=== PATIENT | male | born 1960 | race Hispanic/Latino ===

== ENCOUNTER 2018-07-10 11:36 | Inpatient (IN) | payer MEDICARE ==
[2018-07-10 11:56] VITALS: BMI 24.3
--- NOTE | 2018-07-10 11:59 | ED PDOC ---
Arrival/HPI - General Historian: Patient - History of Present Illness Narrative History of Present Illness (Text): 07/10/18 11:55 57yo male with pmhx of anemia, ITP, unknown psych history present to ED for a test. Per Dr. Dumont patient's H/H was 4.6 while he was at [facility] last week. Patient was supposed to follow up with Dr. Dumont's office earlier this week but never did. Patient did not get blood transfusion. Patient denies chest pain, SOB, weakness, dizziness, melena, hematocehzia, any other complaint Past Medical History - Provider Review Nursing Documentation Reviewed: Yes Family/Social History - Physician Review Nursing Documentation Reviewed: Yes Family/Social History: Unknown Family HX Allergies/Home Meds Allergies/Adverse Reactions: Allergies Penicillins Allergy (Mild, Verified 07/10/18 13:14) RASH Home Medications: Home Meds Medication Instructions Recorded Confirmed RX: Unobtainable 07/10/18 07/10/18 Review of Systems - Physician Review All systems were reviewed & negative as marked: Yes - Review of Systems Constitutional: Other (Anemic) Eyes: Normal ENT: Normal Respiratory: Normal Cardiovascular: Normal Gastrointestinal: Normal Genitourinary Male: Normal Musculoskeletal: Normal Skin: Normal Neurological: Normal Endocrine: Normal Hemo/Lymphatic: Normal Psychiatric: Normal Physical Exam Vital Signs Reviewed: Yes Temperature: Afebrile Blood Pressure: Normal Pulse: Regular Respiratory Rate: Normal Appearance: Positive for: Well-Appearing, Non-Toxic, Comfortable, Other (Pale appearing) Pain Distress: None Mental Status: Positive for: Alert and Oriented X 3 - Systems Exam Head: Present: Atraumatic, Normocephalic Pupils: Present: PERRL Extroacular Muscles: Present: EOMI Conjunctiva: Present: Icteric (B/L) Mouth: Present: Moist Mucous Membranes Neck: Present: Normal Range of Motion Respiratory/Chest: Present: Clear to Auscultation, Good Air Exchange. No: Respiratory Distress, Accessory Muscle Use Cardiovascular: Present: Regular Rate and Rhythm, Normal S1, S2. No: Murmurs Abdomen: No: Tenderness, Distention, Peritoneal Signs Back: Present: Normal Inspection Upper Extremity: Present: Normal Inspection. No: Cyanosis, Edema Lower Extremity: Present: Normal Inspection. No: Edema Neurological: Present: GCS=15, CN II-XII Intact, Speech Normal Skin: Present: Warm, Dry, Normal Color. No: Rashes Psychiatric: Present: Alert, Oriented x 3, Normal Insight, Normal Concentration Medical Decision Making ED Course and Treatment: 07/10/18 17:49 57yo male in ED for H/H of 4.5. Labs type and screen EKG Chest xray Labs was reviewed and H/H of 5.0 was noted. Pt's chart was reviewed and his last H/H was 5.0 on 07/06/18 Plan was to transfuse 3units, patient however declined transfusion. States he already told his PMD, Dr. Dumont that he won't take blood transfusion. He was educated on the importance of getting blood transfusion and the risk of dying from sudden cardiac arrest. He verbalized understanding of this risk and still declined blood transfusion. States he has been on iron regimen for 9months and will prefer iron infusion. Case was JUN Dumont and he recommended Venofer, Folic acid, Vit B12, Carafate, Protonix, chest/abd/Pelvic CT and admission. Patient requested to see Dr. Dumont in ED before he will agree to go upstairs and he was seen in ED by Dr. Dumont. Dr. Dumont states patient states he will think about getting blood transfusion while admitted. Patient was seen in ED by Dr. Camacho and consult was placed, per Dr. Dumont Patient was also seen in ED by the GI fellow. 07/10/18 19:05 Chest/Abd/Pelvic CT IMPRESSION: Large cecal mass. Hepatic and pulmonary metastatic disease. Result was JUN Spaulding who states he saw the CT result Disposition/Present on Arrival - Present on Arrival Any Indicators Present on Arrival: No History of DVT/PE: No History of Uncontrolled Diabetes: No Urinary Catheter: No History of Decub. Ulcer: No History Surgical Site Infection Following: None - Disposition Have Diagnosis and Disposition been Completed?: Yes Diagnosis: GI bleed, Anemia, Cecal cancer Disposition: HOSPITALIZED Disposition Time: 15:05 Patient Plan: Admission Patient Problems: Current Active Problems Problem Status Onset Anemia Acute GI bleed Acute Condition: FAIR
[2018-07-10 13:52] LABS: BASO # 0.02 K/mm3 (0.0-2.0); BASO % 0.3 % (0.0-3.0); EOS % 0.3 % (1.5-5.0); GRAN # 5.16 (1.4-6.5); GRAN % 75.6 % (50.0-68.0); LYMPH # 1.2 (1.2-3.4); LYMPH % 16.8 % (22.0-35.0); MEAN CELL VOLUME 65.2 fl (80.0-105.0); MEAN CORPUSCULAR HEMOGLOBIN 16.9 pg (25.0-35.0); MEAN CORPUSCULAR HGB CONC 25.9 g/dl (31.0-37.0); MONO # 0.5 (0.1-0.6); PLATELET COUNT 236 10^3/uL (120.0-450.0); RBC 2.96 10^6/uL (3.5-6.1); RED CELL DISTRIBUTION WIDTH 19.7 % (11.5-14.5); WHITE BLOOD COUNT 6.8 10^3/uL (4.5-11.0)
[2018-07-10 14:07] LABS: INR 1.36; PARTIAL THROMBOPLASTIN TIME 26.7 Seconds (25.1-36.5); PROTHROMBIN TIME 15.6 SECONDS (9.4-12.5)
[2018-07-10 14:25] LABS: ANISOCYTOSIS 1+; HYPOCHROMIA 2+; LYMPHOCYTE 18 % (22.0-35.0); MONOCYTE 3 % (1.0-6.0); NEUTROPHIL 79 % (50.0-70.0); PLATELET ESTIMATE NORMAL (NORMAL); POIKILOCYTOSIS 1+
[2018-07-10 14:26] LABS: MICROCYTOSIS 3+; OVALOCYTES 1+; TEAR DROP CELLS SLIGHT
[2018-07-10 14:32] LABS: ALB/GLOB RATIO 1.2 (1.1-1.8); ALBUMIN 3.3 g/dL (3.0-4.8); ALT/SGPT 32 U/L (7-56); AST/SGOT 19 U/L (17-59); BLOOD UREA NITROGEN 16 mg/dL (7-21); CALCIUM 8.8 mg/dL (8.4-10.5); GFR NON-AFRICAN AMERICAN > 60
[2018-07-10 15:34] LABS: IRON 14 ug/dL (45-180)
[2018-07-10 15:43] LABS: % IRON SATURATION 5 % (20-55); TOTAL IRON BINDING CAPACITY 295 ug/dL (261-462)
--- NOTE | 2018-07-10 16:43 | CP.PCM.CON ---
History of Present Illness - History of Present Illness History of Present Illness: Gastroenterology Fellow/PGY6 Consult Note 57 year old male with PMH of ITP and iron deficiency anemia on oral iron supplementation presenting with low hemoglobin. He was contacted by Dr. Spaulding for ER presentation earlier this week due to Hemoglobin level of 4.6g/dL. Patient states he has been on oral iron supplementation for the last eight months with worsening hemoglobin. He refuses blood product transfusion due to his morals and principles. He notes over the last one year progressive weakness, dyspnea on exertion, loss of appetite, irregular bowel habits of hard stools with straining every three days, and 40-50 pound unintentional weight loss. He admits to dark brown to black stools "for months". He notes onset of right upper abdomen/flank pain worsened with deep inspiration leading to evaluation at [facility] satellite ER in [place] where he states he was told he had liver "lesions" on ultrasound. Denies chest pain, nausea, vomiting, hematemesis, diarrhea, hematochezia, leg swelling, or confusion. No prior EGD or colonoscopy. Family History- Father- bladder cancer, Brother-Liver cancer Social History- quit tobacco as a teenager, denies alcohol or illicit drug use Surgical History- multiple scalp cyst removal Review of Systems - Review of Systems Review of Systems: 12-point review of systems negative except for as above Past Patient History - Infectious Disease Hx of Infectious Diseases: None - Past Social History Smoking Status: Never Smoked - CARDIAC Hx Cardiac Disorders: No - PULMONARY Hx Respiratory Disorders: No - NEUROLOGICAL Hx Neurological Disorder: No - HEENT Hx HEENT Problems: No - RENAL Hx Chronic Kidney Disease: No - ENDOCRINE/METABOLIC Hx Endocrine Disorders: No - HEMATOLOGICAL/ONCOLOGICAL Hx Blood Disorders: Yes Hx Anemia: Yes Other/Comment: ITP - INTEGUMENTARY Hx Dermatological Problems: No - MUSCULOSKELETAL/RHEUMATOLOGICAL Hx Musculoskeletal Disorders: No - GASTROINTESTINAL Hx Gastrointestinal Disorders: Yes Other/Comment: LIVER PROBLEM - GENITOURINARY/GYNECOLOGICAL Hx Genitourinary Disorders: No - PSYCHIATRIC Hx Psychophysiologic Disorder: Yes Hx Substance Use: No Meds Allergies/Adverse Reactions: Allergies Allergy/AdvReac Type Severity Reaction Status Date / Time Penicillins Allergy Mild RASH Verified 07/10/18 13:14 - Medications Medications: Current Medications Folic Acid (Folic Acid) 1 mg IVP DAILY JOE Physical Exam - Constitutional Appears: Non-toxic, No Acute Distress, Chronically Ill - Head Exam Head Exam: ATRAUMATIC, NORMOCEPHALIC - Eye Exam Eye Exam: EOMI, PERRL. absent: Scleral icterus Pupil Exam: PERRL. absent: Miosis, Mydriatic - ENT Exam ENT Exam: Mucous Membranes Moist, Normal Oropharynx - Neck Exam Neck exam: Positive for: Full Rom, Normal Inspection - Respiratory Exam Respiratory Exam: Clear to Auscultation Bilateral. absent: Rales, Rhonchi, Wheezes - Cardiovascular Exam Cardiovascular Exam: RRR, +S1, +S2. absent: Gallop, Rubs - GI/Abdominal Exam GI & Abdominal Exam: Normal Bowel Sounds, Soft. absent: Distended, Firm, Guarding, Organomegaly, Rebound, Rigid, Tenderness - Rectal Exam Additional comments: refused - Extremities Exam Extremities exam: Positive for: normal inspection. Negative for: pedal edema - Neurological Exam Neurological exam: Alert - Psychiatric Exam Psychiatric exam: Normal Affect, Normal Mood - Skin Skin Exam: Dry, Intact, Pallor, Warm Results - Vital Signs Recent Vital Signs: Last Vital Signs Temp 98.7 F 07/10/18 11:56 Pulse 109 H 07/10/18 11:56 Resp 20 07/10/18 11:56 BP 125/75 07/10/18 11:56 Pulse Ox 99 07/10/18 11:56 - Labs Result Diagrams: 07/10/18 13:30 07/10/18 13:30 Labs: Laboratory Results - last 24 hr 07/10/18 07/10/18 07/10/18 13:30 13:30 13:30 WBC 6.8 RBC 2.96 L Hgb 5.0 L* Hct 19.3 L* MCV 65.2 L MCH 16.9 L MCHC 25.9 L RDW 19.7 H Plt Count 236 Gran % 75.6 H Lymph % (Auto) 16.8 L Harrison % (Auto) 7.0 H Eos % (Auto) 0.3 L Baso % (Auto) 0.3 Gran # 5.16 Lymph # (Auto) 1.2 Harrison # (Auto) 0.5 Eos # (Auto) 0.0 Baso # (Auto) 0.02 Neutrophils % (Manual) 79 H Lymphocytes % (Manual) 18 L Monocytes % (Manual) 3 Platelet Evaluation Normal Hypochromasia 2+ Poikilocytosis (manual 1+ Anisocytosis (manual) 1+ Microcytosis (manual) 3+ Tear Drop Cells Slight Ovalocytes 1+ PT 15.6 H INR 1.36 APTT 26.7 Sodium 138 Potassium 4.0 Chloride 106 Carbon Dioxide 23 Anion Gap 14 BUN 16 Creatinine 0.8 Est GFR ( Amer) > 60 Est GFR (Non-Af Amer) > 60 Random Glucose 102 Calcium 8.8 Iron TIBC % Saturation Total Bilirubin 0.3 AST 19 ALT 32 Alkaline Phosphatase 154 H Total Protein 6.0 Albumin 3.3 Globulin 2.7 Albumin/Globulin Ratio 1.2 Blood Type Blood Type Confirm Antibody Screen BBK History Checked 07/10/18 07/10/18 07/10/18 13:30 13:30 14:15 WBC RBC Hgb Hct MCV MCH MCHC RDW Plt Count Gran % Lymph % (Auto) Harrison % (Auto) Eos % (Auto) Baso % (Auto) Gran # Lymph # (Auto) Harrison # (Auto) Eos # (Auto) Baso # (Auto) Neutrophils % (Manual) Lymphocytes % (Manual) Monocytes % (Manual) Platelet Evaluation Hypochromasia Poikilocytosis (manual Anisocytosis (manual) Microcytosis (manual) Tear Drop Cells Ovalocytes PT INR APTT Sodium Potassium Chloride Carbon Dioxide Anion Gap BUN Creatinine Est GFR ( Amer) Est GFR (Non-Af Amer) Random Glucose Calcium Iron 14 L TIBC 295 % Saturation 5 L Total Bilirubin AST ALT Alkaline Phosphatase Total Protein Albumin Globulin Albumin/Globulin Ratio Blood Type O POSITIVE Blood Type Confirm O POSITIVE Antibody Screen Negative BBK History Checked No verified bt Assessment & Plan - Assessment and Plan (Free Text) Assessment: 57 year old male with PMH of ITP and iron deficiency anemia on oral iron supplementation presenting with low hemoglobin. Active treatment of progressive iron deficiency anemia and unintentional weight loss. No prior EGD or colonoscopy. Plan: -concern for GI blood loss- endorses dark black stools in setting of oral iron supplementation -refuses rectal exam -patient refuses blood product transfusions due to his choice and morals (states "it is not due to lutheran belief") -will benefit from transfusion, counselling provided on benefit versus risks of blood transfusion -patient expresses understanding and confirms respect of his wishes to not have blood transfusion -IV iron sucrose, PPI, B12, sucralfate administration ordered and refused by patient -patient would benefit from acid suppression and IV iron supplementation for concern of GI blood loss -concern for underlying neoplasm in setting of weight loss and iron deficiency anemia -recommend CT C/A/P PO and IV contrast to evaluate for underlying pathology -patient counselled on benefit of endoscopic evaluation with EGD and colonoscopy once clearance is documented to undergo procedures by cardiology and anesthesia given severe iron deficiency anemia with refusal of blood product administration -Hematology consulted (blood smear 06/2018 microcytic hypochromic RBC, no atypical cells) -trend H/H -continue counselling on medications administration -will follow clinical course
--- NOTE | 2018-07-10 17:40 | CP.PCM.PCO ---
Addendum Addendum: 07/10/18 17:38 pt was seen in ED as per 's request meds confirmed by [facility] [place] [phone] pt filled meds on 06/17/18 citalopram 10mg po daily, recommended to continue klonopin 0.5 tid for anxiety, recommended to continue please see dictated note for more detailed information
--- NOTE | 2018-07-10 18:40 | CT ---
Date of service: 07/10/2018 PROCEDURE: CT Chest, Abdomen and Pelvis without intravenous contrast HISTORY: anemia COMPARISON: 05/26/2013 CT abdomen and pelvis TECHNIQUE: Radiation dose: Total exam DLP = 489.66 mGy-cm. This CT exam was performed using one or more of the following dose reduction techniques: Automated exposure control, adjustment of the mA and/or kV according to patient size, and/or use of iterative reconstruction technique. FINDINGS: CT CHEST WITHOUT CONTRAST: LUNGS: Innumerable pulmonary nodules the preponderance of which are 1 cm or less. Metastatic disease by far the most likely etiology. MEDIASTINUM: Unremarkable. Normal caliber aorta and pulmonary arterial trunk. Normal size heart. LYMPH NODES: Unremarkable. PLEURA: Unremarkable. No pneumothorax. No pleural fluid. BONES: Unremarkable. OTHER FINDINGS: None. CT ABDOMEN AND PELVIS: LIVER: Hepatomegaly, hepatic metastatic disease. Several of the masses display increased attenuation consistent with metastatic disease from a gastrointestinal origin. GALLBLADDER AND BILE DUCTS: Unremarkable. PANCREAS: The pancreas is inseparable from adjacent bowel, duodenum. SPLEEN: Stable splenomegaly. She ADRENALS: Unremarkable. No mass. KIDNEYS AND URETERS: Unremarkable. No hydronephrosis. No solid mass. VASCULATURE: No aortic atherosclerotic calcification or mural plaque present. Unremarkable. No aortic aneurysm. BOWEL: Cecal mass identified measuring 4.9 x 6.5 cm. APPENDIX: Normal appendix. PERITONEUM: Free fluid limited to the pelvis.. No free air. LYMPH NODES: Unremarkable. No enlarged lymph nodes. BLADDER: Unremarkable. REPRODUCTIVE: Unremarkable. BONES: No acute fracture. OTHER FINDINGS: None. IMPRESSION: Large cecal mass. Hepatic and pulmonary metastatic disease. Limitations of the current study: The absence of oral and intravenous contrast. Communication of results: I discussed findings directly with the physician cook's assistant involved in the care and management of the patient at 18:31.
[2018-07-10] MEDS: Dextrose 5%/0.45% NS 1,000 ML IV SCH (19:30)
[2018-07-10] MEDS ORDERED: Influenza Vaccine 60 mcg/0.5 mL SYR (4YR UP) IM ONE (23:03)
[2018-07-10] MEDS ORDERED: Pneumococcal 23-Valent Vaccine IM ONE (23:03)
--- NOTE | 2018-07-11 00:58 | HP ---
DATE OF EXAM: 07/10/2018 HISTORY OF PRESENT ILLNESS: This is a 57-year-old white male with significant past medical history of ITP, iron-deficiency anemia, and on oral iron supplementation recently, with progressive weight loss, unintentional and had change in his bowel habits. He was encouraged to go for a GI evaluation, but refused to do so. He was coughing as well, had a chest x-ray done as an outpatient recently, which was negative. He was noted to have progressively worsening anemia over the past month, and hemoglobin that was around 9 and 10, dropped down to 6.4. Usually, his hemoglobin used to be around 11 to 14. Concern was whether this anemia was related to prednisone therapy that he was taking for his ITP versus some other pathology, but the patient because of his issues from a psychiatric point of view, was very angry and did not want to have any investigation done as an outpatient. He is becoming progressively weak. About a week ago, the patient was taken to the local emergency room of [facility] on [address] in [place], where he had a blood count done. He was told he had a hemoglobin of 4.6. Apparently, they have done an ultrasound of his abdomen and showed that there were some lesions in his liver and that he needs to be admitted to the hospital, not only for blood transfusion, but he may need further workup. The patient refused blood transfusion at that time and signed-out against medical advice. The patient called our office over the weekend and then was told to come to the emergency room at [facility]. Because of personal issues, he could not make it. He came to our office on 07/06/2018. Again, the blood count was around 5 at this time and the patient was complaining of progressive tiredness and shortness of breath on exertion. He was advised to come into the hospital. He was advised that he may need an endoscopy, colonoscopy, and further workup including CAT scan of the chest, abdomen and pelvis to investigate why the counts have been dropping steadily over the last [id number]. The patient refused to do so. Recently, he has been noting some right upper quadrant flank pain which worsened with deep inspiration leading to evaluation in the emergency room at [facility] ER in [place], where, as I mentioned, he was told he has lesions in the liver on the ultrasound and the patient because of these findings, was quite concerned. He was supposed to have come to our office on Friday. Again, because of personal reasons, could not make it and he walked into the emergency room today. In the emergency room, the patient's hemoglobin was 4.6 g% and the patient was advised to get admitted for further workup, but the patient refused to do so until he spoke to me. The patient is currently in the ER and awaiting admission. The patient is refusing blood transfusion as well. We will try and discuss with him as to the need for the transfusion before anybody can do an endoscopy or colonoscopy. FAMILY HISTORY: Significant for the fact that his father had bladder cancer and brother had liver cancer. SOCIAL HISTORY: The patient used to be a smoker many years ago, but quit tobacco as a teenager. He denies any alcohol or illicit drug abuse. PAST SURGICAL HISTORY: Scalp cyst removal in the past. There is no other surgical history. PAST MEDICAL HISTORY: Significant for the fact that he was diagnosed with ITP in 2012. Baseline CAT scans and ultrasound of the abdomen from that time which are in the hospital records were negative in the workup for the ITP. Marrow showed adequate megakaryocytes consistent with peripheral destruction. He was started on low-dose prednisone and his platelet count which was in the low 30s, dramatically went up into the 50s and 80,000. The patient has been on intermittent prednisone therapy. It has been tapered off and more recently has been increased and then recently, they cut down the dose of prednisone to the most minimal amount required as the patient now has been having complaints of what appears to be epigastric discomfort and a clinical working diagnosis was anemia related to probably iron loss, rule out GI pathology including ulcers versus malignancy. REVIEW OF SYSTEMS: In the 12-point review of systems, the patient has been complaining of progressive tiredness, shortness of breath on exertion, nonproductive cough. Denies any fevers. Denies any chills. Has been having dark brown to dark stools recently for a few months. Denies any hemoptysis. Denies any elliot bleeding per se. ALLERGIES: THE PATIENT IS ALLERGIC TO PENICILLIN. MEDICATIONS: The patient's medications that he was taking as an outpatient are the following; he is on folic acid 1 mg daily, vitamin D 50,000 units once a week, prednisone 5 mg daily, omeprazole 20 mg daily, ferrous sulfate 1 mg daily, Carafate 1 g by mouth two times a day. The patient is also on citalopram 5 mg one daily and clonazepam 0.5 mg two times a day given by Dr. Aguilar. The patient has been taking these medicines for many years for "bipolar disorder" versus schizophrenia under the care of Dr. Aguilar, a local psychiatrist, since 2008. PHYSICAL EXAMINATION GENERAL: The patient is awake, alert, oriented, in no acute distress. VITAL SIGNS: T-max is 98.4, pulse is 109, respirations 20, blood pressure 125/75, pulse ox is 99% on room air. HEENT: Head is normocephalic, atraumatic. Conjunctivae pale. Temporal muscle wasting is noted. Examination of the oropharynx, there is no oropharyngeal lesion. NECK: Supple. There is no adenopathy. No jugular venous distention noted. LUNGS: Clear to percussion and auscultation without any adventitious sounds. CARDIOVASCULAR: Reveals PMI to be in the fifth intercostal space inside the midclavicular line. S1, S2 are normal. No gallop or murmur is heard. ABDOMEN: Soft, nontender. No rebound, rigidity, or guarding is noted. GENITOURINARY/RECTAL: Deferred as the patient refused. EXTREMITIES: Reveals no cyanosis, clubbing or edema of the upper or lower extremities. NEUROLOGIC: The patient's higher functions are normal. He is angry. No focal deficits are noted. PSYCHIATRIC: The patient has a normal affect, but he carries the diagnosis of bipolar versus schizophrenia, under the care of Dr. Aguilar and he is on two medications for the same for a long time, I believe, since 2008. The patient's medications include citalopram 10 mg daily and clonazepam 0.5 mg two times a day in addition to the aforementioned medicines. LABORATORY DATA: From today reveals a white count of 6.8, hemoglobin of 5, hematocrit 19.3, platelet count 236,000. Sodium is 135, K is 4, chloride is 106, CO2 is 23, BUN is 16, creatinine 0.8, blood sugar is 102. ASSESSMENT NOTES AND PLAN: This is a 57-year-old male with a past medical history of idiopathic thrombocytopenic purpura, iron-deficiency anemia, presenting now with a very low hemoglobin in the emergency room and a background history of having progressive weight loss and progressive drop in the hemoglobin and hematocrit over the last few months, refusing test as an outpatient and the background history of having psychiatric issues including post-traumatic stress disorder, bipolar, depression versus schizophrenia, under the care of Dr. Aguilar and is on citalopram and clonazepam. The patient also has some visual issues for which he has been told he cannot be helped because it appears to be congenital. Plan is to start the patient on IV iron. We tried to convince him that he would benefit from blood transfusion to jumpstart him. The patient would need blood transfusion due to his choice and morals and not because of sabianism belief. He wants to try the IV iron now and see how he does. The patient refuses a rectal exam and we discussed again about the benefits of transfusion. He is going to think about it. Counseling provided to the patient. I spoke to the patient at length. I had the Gastroenterology resident and Gastroenterology fellow talk to the patient as well as the emergency room physician and the emergency room physician culture media laboratory assistant talk to him. Currently, the patient is angry, but he would like to wait and see how things go with the IV iron. I told him we would give him IV iron over the next several days. Along with that, we could give him growth factors. Hopefully, that will raise the count. We are ordering a stat CAT scan of the chest, abdomen, and pelvis to look for internal pathology, especially given the fact that he was told he had some spots in the liver that need to be investigated. We will discuss with the patient in detail once I review the CAT scan as well. Gastroenterology consultation with Dr. Galvez has also been obtained for esophagogastroduodenoscopy and colonoscopy when feasible and when the patient is medically stable. We will request for an EKG in the meantime to check cardiac function as well. Please make a note, this is a complex patient with multiple comorbid medical issues along with psychiatric issues as well. I have requested Dr. Camacho to see the patient as well, who was kind enough to see the patient and make appropriate recommendations. She will continue to monitor while the patient is in the hospital. I tried to reassure the patient that we are not breaching any confidentiality and that Dr. Aguilar would continue to monitor him once he gets discharged from the hospital. I told him I would let Dr. Aguilar know also of his admission once we have everything squared away as far as his hematologic status is concerned. The biggest concern at this point would be underlying malignancy. Mk Spaulding MD MIKAYLA
--- NOTE | 2018-07-11 05:41 | CON ---
DATE: 07/10/2018 HISTORY OF PRESENT ILLNESS: In short, the patient is 57-year-old male with no known psychiatric history. The patient is seeing Dr. Fidencio Aguilar in the community. The patient was sent to the emergency room by Dr. Spaulding for hemoglobin of 4.6. Psych consult was called for evaluation of mood as well as possible depression and medication management. This newspaper writer had prolonged conversation with Dr. Spaulding today, who expressed his highest concerns about the patient's presentation. The patient appears to be angry all the time. Patient has mood swings. Also, the patient does not have cell phone and not responding for any calls, but, at the same time, the patient is compliant with followup appointments with Dr. Spaulding. This newspaper writer attempted to speak to the patient in the emergency room. The patient presented to be very irritable, angry, at times cursing at this newspaper writer. Constant redirections need to be take place while talking to him. The patient reported that he was born angry. This newspaper writer does not know anything about him. The patient was on defensive stage at the beginning of the interview, said "why here. I already have psychiatrist in the community. My psychiatrist is Dr. Fidencio Aguilar." The patient reported that he fills medication at [facility]. Medications confirmed from the psychiatric standpoint. The patient was on citalopram 10 mg daily prescribed by Dr. Fidencio Aguilar. The patient filled that medication on 05/14 and on 06/17, most likely the patient was compliant with the medication. The patient also is on 0.5 mg of clonazepam three times a day as needed, same prescriber, same date of fill of that medication. The patient reported that he is not hearing voices, not seeing things, but obviously was irritable, grandiose. 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 The patient also presented with pressured speech, constantly interrupting this newspaper writer with his statement. The patient said that he has underlying anger, but denied any history of aggression or agitation. The patient denied history of suicidal attempts and denied history of being admitted to the psychiatric inpatient unit. Vital signs reviewed. Labs reviewed. Medications reviewed. MENTAL STATUS EXAMINATION: The patient presented to be irritable, angry, laying with the door closed in darkness. Mood described as, "I was born angry." Affect was flat and irritable. Mood congruent. Thought process at times circumstantial. Thought content, the patient denied visual, auditory, tactile hallucinations, but the patient appears to be guarded at the same time. The patient denied any thoughts of harming himself or others, but was making hopeless statement such as, "my life is over. I have no hopes." Insight and judgment seems to be limited. Impulses are so far well controlled. IMPRESSION: Rule out bipolar disorder, rule out mood disorder due to general medical condition. PLAN: This newspaper writer confirmed medication of clonazepam and citalopram will be confirmed, but will continue with the same doses what the patient was taking. This newspaper writer will ask Dr. Good to follow up on this patient over the weekend. Supportive therapy and empathic listening was provided, but the patient was not receptive. Most likely, the patient requires to be on mood stabilizer, but this newspaper writer doubt that he will be willing to change his medications. Moreover, his newspaper writer cannot exclude, after medical stabilization, pt might be feeling better and the patient's mood will be improving. Meanwhile, the patient will be admitted on the medical site as per medical team. Should you have any questions, give me a call back. Thank you very much for letting me participate in the care of your patient. Janice Guzman MD MTDWai
[2018-07-11 06:24] LABS: ALB/GLOB RATIO 1.2 (1.1-1.8); ALBUMIN 3.2 g/dL (3.0-4.8); ALT/SGPT 25 U/L (7-56); AST/SGOT 28 U/L (17-59); BLOOD UREA NITROGEN 12 mg/dL (7-21); CALCIUM 8.6 mg/dL (8.4-10.5); GFR NON-AFRICAN AMERICAN > 60
[2018-07-11 09:29] LABS: RBC 3.06 10^6/uL (3.5-6.1); WHITE BLOOD COUNT 9.3 10^3/uL (4.5-11.0)
[2018-07-11 09:30] LABS: BASO # 0.01 K/mm3 (0.0-2.0); BASO % 0.1 % (0.0-3.0); EOS # 0.1 (0.0-0.7); EOS % 1.5 % (1.5-5.0); GRAN # 5.73 (1.4-6.5); GRAN % 61.8 % (50.0-68.0); LYMPH # 2.6 (1.2-3.4); LYMPH % 27.7 % (22.0-35.0); MEAN CELL VOLUME 64.4 fl (80.0-105.0); MEAN CORPUSCULAR HGB CONC 26.4 g/dl (31.0-37.0); MONO # 0.8 (0.1-0.6); MONO % 8.9 % (1.0-6.0); PLATELET COUNT 310 10^3/uL (120.0-450.0)
[2018-07-11 09:31] LABS: HEMOGLOBIN 5.2 g/dL (14.0-18.0)
[2018-07-11] MEDS: Dextrose 5%/0.45% NS 1,000 ML IV SCH (11:20)
--- NOTE | 2018-07-11 16:11 | CP.PCM.PN ---
<Olegario Guerrero - Last Filed: 07/11/18 16:08> Subjective - Date & Time of Evaluation Date of Evaluation: 07/11/18 Time of Evaluation: 12:20 - Subjective Subjective: PGY-4 GI Fellow Consult Note Pt lying in bed getting iron infusion when seen this AM. Agitated that blood count has not improved. Anxious about possible cancer diagnosis often cursing aloud. Denied any other complaints. 5 point ROS negative other than stated above Objective - Vital Signs/Intake and Output Vital Signs (last 24 hours): Temp Pulse Resp BP Pulse Ox 98.4 F 64 18 103/54 L 95 07/11/18 08:35 07/11/18 08:35 07/11/18 08:35 07/11/18 08:35 07/11/18 08:35 Intake and Output: 07/11/18 07/11/18 06:59 18:59 Intake Total 120 Balance 120 - Medications Medications: Current Medications Bisacodyl (Dulcolax) 10 mg PO ONCE ONE Stop: 07/12/18 18:01 Citalopram Hydrobromide (Celexa) 10 mg PO DAILY [facility] Last Admin: 07/11/18 10:08 Dose: 10 mg Clonazepam (Klonopin) 0.5 mg PO TID [facility]; Protocol Last Admin: 07/11/18 15:08 Dose: 0.5 mg Folic Acid (Folic Acid) 1 mg IVP DAILY [facility] Last Admin: 07/11/18 13:59 Dose: 1 mg Iron Sucrose 200 mg/ Sodium (Chloride) 110 mls @ 110 mls/hr IVPB DAILY [facility] Stop: 07/15/18 11:00 Last Admin: 07/11/18 10:10 Dose: 110 mls/hr Dextrose/Sodium Chloride (Dextrose 5%/0.45% Ns 1000 Ml) 1,000 mls @ 60 mls/hr IV .[id number] [facility] Last Admin: 07/11/18 11:20 Dose: Not Given Pantoprazole Sodium (Protonix Inj) 40 mg IVP DAILY [facility] Last Admin: 07/11/18 10:08 Dose: 40 mg Polyethylene Glycol/Electrolytes (Golytely) 4,000 ml PO ONCE ONE Stop: 07/12/18 16:01 Sucralfate (Carafate Tab) 1 gm PO 0600,1600 [facility] Last Admin: 07/11/18 15:11 Dose: Not Given - Labs Labs: 07/11/18 05:15 07/11/18 05:15 PT 15.6 SECONDS (9.4-12.5) H 07/10/18 13:30 INR 1.36 07/10/18 13:30 APTT 26.7 Seconds (25.1-36.5) 07/10/18 13:30 - Constitutional Appears: No Acute Distress, Agitated - Head Exam Head Exam: ATRAUMATIC, NORMAL INSPECTION - Eye Exam Eye Exam: EOMI. absent: Scleral icterus - ENT Exam ENT Exam: Mucous Membranes Moist. absent: Mucous Membranes Dry - Respiratory Exam Respiratory Exam: NORMAL BREATHING PATTERN. absent: Accessory Muscle Use, Respiratory Distress - GI/Abdominal Exam GI & Abdominal Exam: Soft, Normal Bowel Sounds, Organomegaly (firm hepatomegaly). absent: Bruit, Distended, Firm, Guarding, Rigid, Tenderness, Pulsatile Mass, Rebound Assessment and Plan - Assessment and Plan (Free Text) Assessment: 57 year old male with PMH of ITP and iron deficiency anemia on oral iron supplementation presenting with low hemoglobin. Active treatment of progressive iron deficiency anemia and unintentional weight loss. No prior EGD or colonoscopy. # Cecal Mass, Worsening Anemia, Liver+Pulmonary lesion: Constellation of signs/symptoms all point to Stage IV Colon Cancer. Needs further endoscopic ev aluation to assess for any other sources of bleeding, potential bleeding malignancy and tissue sample of cecal mass. Plan: - At this time, patient refuses blood product transfusions due to his choice and morals (states "it is not due to christian belief"); however, he is agreeable to transfuse with PRBCs to goal of 8 if not met in AM of 07/12 - IV Iron, PRBCs per Hematology - Plan for EGD+CSPY on 07/13 - CLD tomorrow - Prep for CSPY on 07/12 - NPO at [place] on 07/12 - Trend H/H Pt seen and examined with Dr. Galvez; see attestation for further recs/changes Olegario Guerrero; PGY-4 <Delonte Galvez V - Last Filed: 07/11/18 17:06> Objective - Vital Signs/Intake and Output Vital Signs (last 24 hours): Temp Pulse Resp BP Pulse Ox 99.9 F H 77 18 110/72 98 12/01/18 16:55 07/11/18 16:55 07/11/18 16:55 07/11/18 16:55 07/11/18 16:55 Intake and Output: 07/11/18 07/11/18 06:59 18:59 Intake Total 120 Balance 120 - Medications Medications: Current Medications Bisacodyl (Dulcolax) 10 mg PO ONCE ONE Stop: 07/12/18 18:01 Citalopram Hydrobromide (Celexa) 10 mg PO DAILY [facility] Last Admin: 07/11/18 10:08 Dose: 10 mg Clonazepam (Klonopin) 0.5 mg PO TID [facility]; Protocol Last Admin: 07/11/18 15:08 Dose: 0.5 mg Folic Acid (Folic Acid) 1 mg IVP DAILY [facility] Last Admin: 07/11/18 13:59 Dose: 1 mg Iron Sucrose 200 mg/ Sodium (Chloride) 110 mls @ 110 mls/hr IVPB DAILY [facility] Stop: 07/15/18 11:00 Last Admin: 07/11/18 10:10 Dose: 110 mls/hr Dextrose/Sodium Chloride (Dextrose 5%/0.45% Ns 1000 Ml) 1,000 mls @ 60 mls/hr IV .[id number] [facility] [place] Last Admin: 07/11/18 11:20 Dose: Not Given Pantoprazole Sodium (Protonix Inj) 40 mg IVP DAILY [facility] Last Admin: 07/11/18 10:08 Dose: 40 mg Polyethylene Glycol/Electrolytes (Golytely) 4,000 ml PO ONCE ONE Stop: 07/12/18 16:01 Sucralfate (Carafate Tab) 1 gm PO 0600,1600 [facility] Last Admin: 07/11/18 15:11 Dose: Not Given - Labs Labs: 07/11/18 05:15 07/11/18 05:15 PT 15.6 SECONDS (9.4-12.5) H 07/10/18 13:30 INR 1.36 07/10/18 13:30 APTT 26.7 Seconds (25.1-36.5) 07/10/18 13:30 Attending/Attestation - Attestation I have personally seen and examined this patient.: Yes I have fully participated in the care of the patient.: Yes I have reviewed all pertinent clinical information, including history, physical exam and plan: Yes Notes (Text): This is an addendum to GI progress report dictated by the GI Fellow. The patient was seen and examined earlier. Medical records, lab studies, imagings were reviewed. Last 24 hours events reviewed. Agreed with the above treatment plan as outlined in GI Fellow 's notes with the addition of the following This 57 year old patient has a large cecal mass with lung and liver lesions. Admitted with severe anemia. Patient is on iron infusion. Agreeable for blood transfusion tomorrow if hemoglobin is low. Explained to the patient that EGD and colonoscopy can not be done unless his hemoglobin improves to at least 8. Will start bowel preparation tomorrow after reviewing his blood work. Clear liquid diet in the AM. Discussed with Dr.Arjun Spaulding. 07/11/18 17:03
--- NOTE | 2018-07-11 20:40 | CON ---
DATE OF CONSULTATION: 07/11/2018 HISTORY OF PRESENT ILLNESS: The patient is a 57-year-old male, who was in psychiatric treatment with Dr. Aguilar, who was seen by Dr. Guzman in the ER for evaluation of depression and possible further medication management. Dr. Guzman met with the patient in the ER and noted the patient to be irritable, angry, and and unwilling to engage. He eventually, reluctantly did have an interview with her. The patient at that time denied having any hallucinations. Irritability and pressured speech were noted as well as underlying anger. He denied having any suicidal thoughts or thoughts to harm others. Dr. Guzman did not feel that he would engage with any psychiatric treatment on the psychiatric inpatient unit, I agree with Dr. Guzman's assessment. When I met the patient at bedside today, he is alert and oriented to current circumstances, however, appears to be irritable and very unhappy with the continued psychiatric consultation attempts by this provider and Dr. Guzman. He was verbally abusive towards this provider as he was with Dr. Guzman, and he is quite annoyed that psychiatric consultations were called on him. The patient again denies having any thoughts to harm himself. He states that he is not a danger to anybody, those were his words, specifically "I'm not a danger to myself, I'm not a danger to any body else." The patient expresses his sincere wish to be left alone and indicates that he plans to keep a followup with his psychiatrist and does not have any wish to have any further discussions about his mental health treatment on the medical floor. The patient is irritable. However, I did not elicit any grandiose or overtly delusional statements during the course of our conversation, and the patient was able to be calmed down, though is still very resistant to actually interact in a productive manner to discuss his mental health and well-being. He does not want any changes to his medications and refused a psychiatric inpatient hospitalization when this disposition was brought up. Vital signs and labs reviewed. MEDICATIONS: Relevant psychiatric medications include Celexa 10 mg daily, Klonopin 0.5 t.i.d. IMPRESSION: Mood disorder, not otherwise specified, rule out bipolar spectrum disorder, rule out personality disorder, likely borderline personality trait, though I cannot determine whether there was hypomania RECOMMENDATIONS: I will continue Celexa and Klonopin as prescribed. The patient defers from any further psychiatric interventions in regard to therapy or medication management The patient continues to be verbally abusive to the psychiatric staff in the hospital and further attempts to engage him will escalate his agitation. Please reconsult if there are any new changes to the patient's symptomatology, but he does not appear to have any acute indications for being a danger to himself according to reports. Sailaja Good MD MTDD
[2018-07-12 05:48] LABS: BASO # 0.01 K/mm3 (0.0-2.0); BASO % 0.1 % (0.0-3.0); EOS # 0.1 (0.0-0.7); EOS % 1.3 % (1.5-5.0); GRAN # 4.74 (1.4-6.5); GRAN % 66.7 % (50.0-68.0); LYMPH # 1.8 (1.2-3.4); LYMPH % 25.1 % (22.0-35.0); MEAN CELL VOLUME 64.3 fl (80.0-105.0); MEAN CORPUSCULAR HEMOGLOBIN 16.9 pg (25.0-35.0); MEAN CORPUSCULAR HGB CONC 26.3 g/dl (31.0-37.0); MONO # 0.5 (0.1-0.6); MONO % 6.8 % (1.0-6.0); PLATELET COUNT 242 10^3/uL (120.0-450.0); RBC 2.72 10^6/uL (3.5-6.1); RED CELL DISTRIBUTION WIDTH 19.4 % (11.5-14.5); WHITE BLOOD COUNT 7.1 10^3/uL (4.5-11.0)
[2018-07-12 06:04] LABS: BLOOD UREA NITROGEN 8 mg/dL (7-21); GFR NON-AFRICAN AMERICAN > 60
[2018-07-12 06:05] LABS: ALB/GLOB RATIO 1.1 (1.1-1.8); ALBUMIN 2.6 g/dL (3.0-4.8); ALT/SGPT 33 U/L (7-56); AST/SGOT 26 U/L (17-59); CALCIUM 8.2 mg/dL (8.4-10.5)
[2018-07-12 06:08] LABS: HEMOGLOBIN 4.6 g/dL (14.0-18.0)
[2018-07-12] MEDS ORDERED: DiphenhydrAMINE 50 mg/ml Inj IVP ONE (08:17)
--- NOTE | 2018-07-12 12:18 | CP.PCM.PN ---
<Olegario Guerrero - Last Filed: 07/12/18 12:15> Subjective - Date & Time of Evaluation Date of Evaluation: 07/12/18 Time of Evaluation: 09:10 - Subjective Subjective: PGY-4 GI Fellow Prog Note Pt sitting up in bed when seen this AM. Hgb did not improve post Fe infusions, though hesitant and agitated, he agrees to blood transfusions with goal Hgb of 8 in anticipation of plan procedure tomorrow. Otherwise, denies complaints and "wants to get this shit over with." 5 point ROS negative other than stated above Objective - Vital Signs/Intake and Output Vital Signs (last 24 hours): Temp Pulse Resp BP Pulse Ox 98.2 F 71 18 103/63 95 07/12/18 10:28 07/12/18 10:28 07/12/18 10:28 07/12/18 10:28 07/12/18 08:02 Intake and Output: 07/12/18 07/12/18 06:59 18:59 Intake Total 240 0 Balance 240 0 - Medications Medications: Current Medications Acetaminophen (Tylenol 325mg Tab) 650 mg PO Q6H PRN PRN Reason: Fever >100.4 F Last Admin: 07/12/18 09:27 Dose: 650 mg Bisacodyl (Dulcolax) 10 mg PO ONCE ONE Stop: 07/12/18 18:01 Citalopram Hydrobromide (Celexa) 10 mg PO DAILY [facility] Last Admin: 07/12/18 10:13 Dose: 10 mg Clonazepam (Klonopin) 0.5 mg PO TID [facility]; Protocol Last Admin: 07/12/18 10:12 Dose: 0.5 mg Clonazepam (Klonopin) 0.5 mg PO ONCE ONE; Protocol Stop: 07/12/18 21:16 Last Admin: 07/11/18 23:06 Dose: 0.5 mg Folic Acid (Folic Acid) 1 mg IVP DAILY [facility] Last Admin: 07/12/18 10:13 Dose: Not Given Iron Sucrose 200 mg/ Sodium (Chloride) 110 mls @ 110 mls/hr IVPB DAILY [facility] Stop: 07/15/18 11:00 Last Admin: 07/12/18 10:16 Dose: Not Given Dextrose/Sodium Chloride (Dextrose 5%/0.45% Ns 1000 Ml) 1,000 mls @ 60 mls/hr IV .[id number] [facility] Last Admin: 07/11/18 11:20 Dose: Not Given Pantoprazole Sodium (Protonix Inj) 40 mg IVP DAILY [facility] Last Admin: 07/12/18 10:14 Dose: Not Given Polyethylene Glycol/Electrolytes (Golytely) 4,000 ml PO ONCE ONE Stop: 07/12/18 16:01 Sucralfate (Carafate Tab) 1 gm PO 0600,1600 [facility] Last Admin: 07/12/18 06:44 Dose: 1 gm - Labs Labs: 07/12/18 05:30 07/12/18 05:30 PT 15.6 SECONDS (9.4-12.5) H 07/10/18 13:30 INR 1.36 07/10/18 13:30 APTT 26.7 Seconds (25.1-36.5) 07/10/18 13:30 - Constitutional Appears: Well, No Acute Distress, Agitated - Head Exam Head Exam: ATRAUMATIC, NORMAL INSPECTION - Eye Exam Eye Exam: EOMI Additional comments: Conjunctival pallor - ENT Exam ENT Exam: Mucous Membranes Moist. absent: Mucous Membranes Dry - GI/Abdominal Exam GI & Abdominal Exam: Soft, Normal Bowel Sounds, Organomegaly (firm palpable li moses). absent: Bruit, Distended, Firm, Guarding, Rigid, Tenderness, Pulsatile Mass Assessment and Plan - Assessment and Plan (Free Text) Assessment: 57 year old male with PMH of ITP and iron deficiency anemia on oral iron supplementation presenting with low hemoglobin. Active treatment of progressive iron deficiency anemia and unintentional weight loss. No prior EGD or colonoscopy. # Cecal Mass, Worsening Anemia, Liver+Pulmonary lesion: Constellation of signs/symptoms all point to Stage IV Colon Cancer. Needs further endoscopic evaluation to assess for any other sources of bleeding, potential bleeding malignancy and tissue sample of cecal mass. # Social concerns: Pt is very agitated/anxious. Anticipate difficult follow-up process. Psych consulted. Plan: - PRBCs transfusions today, anticipate at least 4 units with goal Hgb of 8 --- IV Iron, PRBCs per Hematology - Plan for EGD+CSPY on 07/13 - Risks, benefits, alternatives discussed with patient who agrees to proceed after lengthy discussion --- Consent signed and in chart - CLD today - Prep for CSPY this PM - NPO except meds at [place] tonight - Trend CBC Pt discussed with Dr. Galvez; see attestation for further recs/changes Olegario Guerrero; PGY-4 <Delonte Galvez V - Last Filed: 07/12/18 19:15> Objective - Vital Signs/Intake and Output Vital Signs (last 24 hours): Temp Pulse Resp BP Pulse Ox 98.2 F 68 18 111/73 95 07/12/18 13:26 07/12/18 13:26 07/12/18 13:26 07/12/18 13:26 07/12/18 08:02 Intake and Output: 07/12/18 07/12/18 06:59 18:59 Intake Total 240 355 Balance 240 355 - Medications Medications: Current Medications Acetaminophen (Tylenol 325mg Tab) 650 mg PO Q6H PRN PRN Reason: Fever >100.4 F Last Admin: 07/12/18 09:27 Dose: 650 mg Bisacodyl (Dulcolax) 10 mg PO ONCE ONE Stop: 07/12/18 18:01 Citalopram Hydrobromide (Celexa) 10 mg PO DAILY [facility] Last Admin: 07/12/18 10:13 Dose: 10 mg Clonazepam (Klonopin) 0.5 mg PO TID [facility]; Protocol Last Admin: 07/12/18 14:00 Dose: Not Given Clonazepam (Klonopin) 0.5 mg PO ONCE ONE; Protocol Stop: 07/12/18 21:16 Last Admin: 07/11/18 23:06 Dose: 0.5 mg Folic Acid (Folic Acid) 1 mg IVP DAILY [facility] Last Admin: 07/12/18 10:13 Dose: Not Given Iron Sucrose 200 mg/ Sodium (Chloride) 110 mls @ 110 mls/hr IVPB DAILY [facility] Stop: 07/15/18 11:00 Last Admin: 07/12/18 10:16 Dose: Not Given Dextrose/Sodium Chloride (Dextrose 5%/0.45% Ns 1000 Ml) 1,000 mls @ 60 mls/hr IV .[id number] [facility] Last Admin: 07/11/18 11:20 Dose: Not Given Pantoprazole Sodium (Protonix Inj) 40 mg IVP DAILY [facility] Last Admin: 07/12/18 10:14 Dose: Not Given Polyethylene Glycol/Electrolytes (Golytely) 4,000 ml PO ONCE ONE Stop: 07/12/18 16:01 Sucralfate (Carafate Tab) 1 gm PO 0600,1600 [facility] Last Admin: 07/12/18 06:44 Dose: 1 gm - Labs Labs: 07/12/18 05:30 07/12/18 05:30 PT 15.6 SECONDS (9.4-12.5) H 07/10/18 13:30 INR 1.36 07/10/18 13:30 APTT 26.7 Seconds (25.1-36.5) 07/10/18 13:30 Attending/Attestation - Attestation I have personally seen and examined this patient.: Yes I have fully participated in the care of the patient.: Yes I have reviewed all pertinent clinical information, including history, physical exam and plan: Yes Notes (Text): This is an addendum to GI followup report dictated by the GI Fellow. The patient was seen and evaluated earlier. Medical records, lab studies, imagings were reviewed. Last 24 hours events reviewed. Agreed with the above treatment plan as outlined in GI Fellow's notes with the addition of the following This patient's current hemoglobin is only 4.6. We need to await for blood transfusion and improvement of blood count prior to starting colon preparation. Patient is scheduled for EGD and colonoscopy tomorrow. Patient has a large cecal mass. Hepatic and lung lesions suggests probable metastatic. Will discuss with staff development coordinator. 07/12/18 14:56 07/12/18 19:15
--- NOTE | 2018-07-12 15:46 | CP.PCM.PN ---
<Luis Spaulding MD - Last Filed: 07/12/18 15:43> Subjective - Date & Time of Evaluation Date of Evaluation: 07/11/18 Time of Evaluation: 20:00 - Subjective Subjective: Patient endorses frustration of being in hospital. Still fatigued; tolerating IV iron w/o issues ROS 12 ROS otherwise negative Objective - Vital Signs/Intake and Output Vital Signs (last 24 hours): Temp Pulse Resp BP Pulse Ox 98.3 F 70 18 128/78 95 07/12/18 14:27 07/12/18 14:27 07/12/18 14:27 07/12/18 14:27 07/12/18 08:02 Intake and Output: 07/12/18 07/12/18 06:59 18:59 Intake Total 240 680 Balance 240 680 - Medications Medications: Current Medications Acetaminophen (Tylenol 325mg Tab) 650 mg PO Q6H PRN PRN Reason: Fever >100.4 F Last Admin: 07/12/18 09:27 Dose: 650 mg Bisacodyl (Dulcolax) 10 mg PO ONCE ONE Stop: 07/12/18 18:01 Citalopram Hydrobromide (Celexa) 10 mg PO DAILY [facility] Last Admin: 07/12/18 10:13 Dose: 10 mg Clonazepam (Klonopin) 0.5 mg PO TID [facility]; Protocol Last Admin: 07/12/18 14:00 Dose: Not Given Clonazepam (Klonopin) 0.5 mg PO ONCE ONE; Protocol Stop: 07/12/18 21:16 Last Admin: 07/11/18 23:06 Dose: 0.5 mg Folic Acid (Folic Acid) 1 mg IVP DAILY [facility] Last Admin: 07/12/18 10:13 Dose: Not Given Iron Sucrose 200 mg/ Sodium (Chloride) 110 mls @ 110 mls/hr IVPB DAILY [facility] Stop: 07/15/18 11:00 Last Admin: 07/12/18 10:16 Dose: Not Given Dextrose/Sodium Chloride (Dextrose 5%/0.45% Ns 1000 Ml) 1,000 mls @ 60 mls/hr IV .[id number] [facility] Last Admin: 07/11/18 11:20 Dose: Not Given Pantoprazole Sodium (Protonix Inj) 40 mg IVP DAILY [facility] Last Admin: 07/12/18 10:14 Dose: Not Given Polyethylene Glycol/Electrolytes (Golytely) 4,000 ml PO ONCE ONE Stop: 07/12/18 16:01 Sucralfate (Carafate Tab) 1 gm PO 0600,1600 [facility] Last Admin: 07/12/18 06:44 Dose: 1 gm - Labs Labs: 07/12/18 05:30 07/12/18 05:30 PT 15.6 SECONDS (9.4-12.5) H 07/10/18 13:30 INR 1.36 07/10/18 13:30 APTT 26.7 Seconds (25.1-36.5) 07/10/18 13:30 - Constitutional Appears: Non-toxic - Head Exam Head Exam: ATRAUMATIC, NORMAL INSPECTION, NORMOCEPHALIC - Eye Exam Eye Exam: EOMI, Normal appearance, PERRL - Respiratory Exam Respiratory Exam: Clear to Ausculation Bilateral, NORMAL BREATHING PATTERN - Cardiovascular Exam Cardiovascular Exam: REGULAR RHYTHM, +S1, +S2. absent: Murmur - GI/Abdominal Exam GI & Abdominal Exam: Soft, Tenderness. absent: Diminished Bowel Sounds, Hypoactive Bowel Sounds, Organomegaly, Rebound - Extremities Exam Extremities Exam: Full ROM, Normal Capillary Refill, Normal Inspection. absent: Joint Swelling, Pedal Edema - Neurological Exam Neurological Exam: Oriented x3 Assessment and Plan (1) Cecal cancer Status: Acute - Assessment and Plan (Free Text) Assessment: Mr. Blackman is 57 y/o man with pmhx significant for ITP and Iron defeciency anemia who presents with acute drop in hemoglobin with subsequent w/up demosntrating a large cecal mass and findings concerning for mets to liver and pulmonary. Patient previusly recieving IV iron and refused blood transfusions based on moral preferences. But now amenable to blood transfusion. If hgb not at goal tomorrow plan on transfusion of PRBC with goal hgb>8 with plan for EGD/col on friday. Luis Spaulding Medical Oncology <Mk Spaulding P - Last Filed: 07/13/18 14:29> Objective - Vital Signs/Intake and Output Vital Signs (last 24 hours): Temp Pulse Resp BP Pulse Ox 97.2 F L 64 20 128/85 97 07/13/18 08:17 07/13/18 08:17 07/13/18 08:17 07/13/18 08:17 07/13/18 08:17 Intake and Output: 07/13/18 07/13/18 06:59 18:59 Intake Total 325 Balance 325 - Medications Medications: Current Medications Acetaminophen (Tylenol 325mg Tab) 650 mg PO Q6H PRN PRN Reason: Fever >100.4 F Last Admin: 07/13/18 00:16 Dose: 650 mg Citalopram Hydrobromide (Celexa) 10 mg PO DAILY [facility] Last Admin: 07/13/18 09:38 Dose: Not Given Clonazepam (Klonopin) 0.5 mg PO TID [facility]; Protocol Last Admin: 07/13/18 13:46 Dose: Not Given Folic Acid (Folic Acid) 1 mg IVP DAILY [facility] Last Admin: 07/13/18 09:38 Dose: Not Given Iron Sucrose 200 mg/ Sodium (Chloride) 110 mls @ 110 mls/hr IVPB DAILY [facility] Stop: 07/15/18 11:00 Last Admin: 07/13/18 09:37 Dose: Not Given Dextrose/Sodium Chloride (Dextrose 5%/0.45% Ns 1000 Ml) 1,000 mls @ 60 mls/hr IV .[id number] [facility] Last Admin: 07/11/18 11:20 Dose: Not Given Sodium Chloride (Sodium Chloride 0.9%) 1,000 mls @ 75 mls/hr IV .[id number] [facility] Stop: 07/13/18 21:01 Pantoprazole Sodium (Protonix Inj) 40 mg IVP DAILY [facility] Last Admin: 07/13/18 09:37 Dose: Not Given Sucralfate (Carafate Tab) 1 gm PO 0600,1600 [facility] Last Admin: 07/13/18 05:27 Dose: 1 gm - Labs Labs: 07/13/18 00:28 07/13/18 00:28 PT 15.6 SECONDS (9.4-12.5) H 07/10/18 13:30 INR 1.36 07/10/18 13:30 APTT 26.7 Seconds (25.1-36.5) 07/10/18 13:30 Attending/Attestation - Attestation I have personally seen and examined this patient.: Yes I have fully participated in the care of the patient.: Yes I have reviewed all pertinent clinical information, including history, physical exam and plan: Yes
--- NOTE | 2018-07-12 15:48 | CP.PCM.PN ---
<Luis Spaulding MD - Last Filed: 07/12/18 15:46> Subjective - Date & Time of Evaluation Date of Evaluation: 07/12/18 Time of Evaluation: 17:00 - Subjective Subjective: patient receiving PRBC b/c hgb not at goal; no active issue with transfusion. Plan on starting prep later this morning ROS: 12 ROS otherwise negative Objective - Vital Signs/Intake and Output Vital Signs (last 24 hours): Temp Pulse Resp BP Pulse Ox 99.2 F 66 18 125/76 95 07/12/18 15:43 07/12/18 15:43 07/12/18 15:43 07/12/18 15:43 07/12/18 08:02 Intake and Output: 07/12/18 07/12/18 06:59 18:59 Intake Total 240 680 Balance 240 680 - Medications Medications: Current Medications Acetaminophen (Tylenol 325mg Tab) 650 mg PO Q6H PRN PRN Reason: Fever >100.4 F Last Admin: 07/12/18 09:27 Dose: 650 mg Bisacodyl (Dulcolax) 10 mg PO ONCE ONE Stop: 07/12/18 18:01 Citalopram Hydrobromide (Celexa) 10 mg PO DAILY [facility] Last Admin: 07/12/18 10:13 Dose: 10 mg Clonazepam (Klonopin) 0.5 mg PO TID [facility]; Protocol Last Admin: 07/12/18 14:00 Dose: Not Given Clonazepam (Klonopin) 0.5 mg PO ONCE ONE; Protocol Stop: 07/12/18 21:16 Last Admin: 07/11/18 23:06 Dose: 0.5 mg Folic Acid (Folic Acid) 1 mg IVP DAILY [facility] Last Admin: 07/12/18 10:13 Dose: Not Given Iron Sucrose 200 mg/ Sodium (Chloride) 110 mls @ 110 mls/hr IVPB DAILY [facility] Stop: 07/15/18 11:00 Last Admin: 07/12/18 10:16 Dose: Not Given Dextrose/Sodium Chloride (Dextrose 5%/0.45% Ns 1000 Ml) 1,000 mls @ 60 mls/hr IV .[id number] [facility] Last Admin: 07/11/18 11:20 Dose: Not Given Pantoprazole Sodium (Protonix Inj) 40 mg IVP DAILY [facility] Last Admin: 07/12/18 10:14 Dose: Not Given Polyethylene Glycol/Electrolytes (Golytely) 4,000 ml PO ONCE ONE Stop: 07/12/18 16:01 Sucralfate (Carafate Tab) 1 gm PO 0600,1600 [facility] Last Admin: 07/12/18 06:44 Dose: 1 gm - Labs Labs: 07/12/18 05:30 07/12/18 05:30 PT 15.6 SECONDS (9.4-12.5) H 07/10/18 13:30 INR 1.36 07/10/18 13:30 APTT 26.7 Seconds (25.1-36.5) 07/10/18 13:30 - Constitutional Appears: Well - Head Exam Head Exam: ATRAUMATIC, NORMAL INSPECTION, NORMOCEPHALIC - Respiratory Exam Respiratory Exam: Clear to Ausculation Bilateral, NORMAL BREATHING PATTERN - Cardiovascular Exam Cardiovascular Exam: REGULAR RHYTHM, +S1, +S2. absent: Murmur - GI/Abdominal Exam GI & Abdominal Exam: Tenderness. absent: Distended, Firm, Guarding, Diminished Bowel Sounds, Hypoactive Bowel Sounds - Extremities Exam Extremities Exam: Calf Tenderness - Neurological Exam Neurological Exam: Oriented x3 - Psychiatric Exam Psychiatric exam: Anxious - Skin Skin Exam: Dry, Intact, Normal Color, Warm Assessment and Plan (1) Cecal cancer Status: Acute - Assessment and Plan (Free Text) Assessment: Mr. Blackman is 57 y/o man with pmhx significant for ITP and Iron defeciency anemia who presents with acute drop in hemoglobin with subsequent w/up demosntrating a large cecal mass and findings concerning for mets to liver and pulmonary. Patient previusly recieving IV iron and refused blood transfusions based on moral preferences. But now amenable to blood transfusion. Plan on transfusing 4 units of PRBC for hgb goal of >8 for EGD/colo tomorrow. Will subsequently consider liver biopsy subsequently to confirm staging of presumable colon cancer Luis Spaulding MD Oncology. <Mk Spaulding P - Last Filed: 07/13/18 14:28> Objective - Vital Signs/Intake and Output Vital Signs (last 24 hours): Temp Pulse Resp BP Pulse Ox 97.2 F L 64 20 128/85 97 07/13/18 08:17 07/13/18 08:17 07/13/18 08:17 07/13/18 08:17 07/13/18 08:17 Intake and Output: 07/13/18 07/13/18 06:59 18:59 Intake Total 325 Balance 325 - Medications Medications: Current Medications Acetaminophen (Tylenol 325mg Tab) 650 mg PO Q6H PRN PRN Reason: Fever >100.4 F Last Admin: 07/13/18 00:16 Dose: 650 mg Citalopram Hydrobromide (Celexa) 10 mg PO DAILY [facility] Last Admin: 07/13/18 09:38 Dose: Not Given Clonazepam (Klonopin) 0.5 mg PO TID [facility]; Protocol Last Admin: 07/13/18 13:46 Dose: Not Given Folic Acid (Folic Acid) 1 mg IVP DAILY [facility] Last Admin: 07/13/18 09:38 Dose: Not Given Iron Sucrose 200 mg/ Sodium (Chloride) 110 mls @ 110 mls/hr IVPB DAILY [facility] Stop: 07/15/18 11:00 Last Admin: 07/13/18 09:37 Dose: Not Given Dextrose/Sodium Chloride (Dextrose 5%/0.45% Ns 1000 Ml) 1,000 mls @ 60 mls/hr IV .[id number] [facility] Last Admin: 07/11/18 11:20 Dose: Not Given Sodium Chloride (Sodium Chloride 0.9%) 1,000 mls @ 75 mls/hr IV .[id number] [facility] Stop: 07/13/18 21:01 Pantoprazole Sodium (Protonix Inj) 40 mg IVP DAILY [facility] Last Admin: 07/13/18 09:37 Dose: Not Given Sucralfate (Carafate Tab) 1 gm PO 0600,1600 [facility] Last Admin: 07/13/18 05:27 Dose: 1 gm - Labs Labs: 07/13/18 00:28 07/13/18 00:28 PT 15.6 SECONDS (9.4-12.5) H 07/10/18 13:30 INR 1.36 07/10/18 13:30 APTT 26.7 Seconds (25.1-36.5) 07/10/18 13:30 Attending/Attestation - Attestation I have personally seen and examined this patient.: Yes I have fully participated in the care of the patient.: Yes I have reviewed all pertinent clinical information, including history, physical exam and plan: Yes
[2018-07-12] MEDS ORDERED: Peg-Electrolyte Oral Soln 4L (Golytely) PO ONE (16:00)
[2018-07-12] MEDS ORDERED: Bisacodyl 5mg EC Tab PO ONE (18:00)
[2018-07-13 00:53] LABS: BASO # 0.01 K/mm3 (0.0-2.0); BASO % 0.1 % (0.0-3.0); EOS # 0.1 (0.0-0.7); GRAN # 6.06 (1.4-6.5); GRAN % 73.1 % (50.0-68.0); LYMPH # 1.5 (1.2-3.4); LYMPH % 18.3 % (22.0-35.0); MEAN CORPUSCULAR HGB CONC 29.6 g/dl (31.0-37.0); MONO # 0.6 (0.1-0.6); MONO % 7.5 % (1.0-6.0); PLATELET COUNT 215 10^3/uL (120.0-450.0); RBC 3.96 10^6/uL (3.5-6.1); RED CELL DISTRIBUTION WIDTH 23.2 % (11.5-14.5); WHITE BLOOD COUNT 8.3 10^3/uL (4.5-11.0)
[2018-07-13 01:03] LABS: HEMOGLOBIN 8.3 g/dL (14.0-18.0)
[2018-07-13 01:04] LABS: MEAN CELL VOLUME 70.7 fl (80.0-105.0)
[2018-07-13 01:06] LABS: ALB/GLOB RATIO 1.1 (1.1-1.8); ALBUMIN 2.8 g/dL (3.0-4.8); ALT/SGPT 25 U/L (7-56); AST/SGOT 28 U/L (17-59); BLOOD UREA NITROGEN 9 mg/dL (7-21); CALCIUM 8.2 mg/dL (8.4-10.5); GFR NON-AFRICAN AMERICAN > 60
[2018-07-13] MEDS ORDERED: Bisacodyl 5mg EC Tab PO ONE ×2 (05:00→10:00)
[2018-07-13] MEDS ORDERED: Peg-Electrolyte Oral Soln 4L (Golytely) PO ONE (06:00)
--- NOTE | 2018-07-13 08:40 | CP.PCM.PN ---
Subjective - Date & Time of Evaluation Date of Evaluation: 07/13/18 Time of Evaluation: 08:39 - Subjective Subjective: Sincere Koch DO, PGY-2: Hematology and Oncology Progress Note for Dr. Spaulding Patient was seen and examined at bedside. At the time of examination, he drank about 1/3 of the Go-lytely. He reports not eating anything for the past 3-4 da ys. He denies passing any blood with his bowel movements. He reports that his BM are liquid clear. He was encouraged to drink at least half of the prescribed Go lytlely. Otherwise, no adverse events were noted overnight. Objective - Vital Signs/Intake and Output Vital Signs (last 24 hours): Temp Pulse Resp BP Pulse Ox 97.2 F L 64 20 128/85 97 07/13/18 08:17 07/13/18 08:17 07/13/18 08:17 07/13/18 08:17 07/13/18 08:17 Intake and Output: 07/13/18 07/13/18 06:59 18:59 Intake Total 325 Balance 325 - Medications Medications: Current Medications Acetaminophen (Tylenol 325mg Tab) 650 mg PO Q6H PRN PRN Reason: Fever >100.4 F Last Admin: 07/13/18 00:16 Dose: 650 mg Bisacodyl (Dulcolax) 10 mg PO ONCE ONE Stop: 07/13/18 10:01 Citalopram Hydrobromide (Celexa) 10 mg PO DAILY [facility] Last Admin: 07/12/18 10:13 Dose: 10 mg Clonazepam (Klonopin) 0.5 mg PO TID [facility]; Protocol Last Admin: 07/12/18 17:49 Dose: 0.5 mg Folic Acid (Folic Acid) 1 mg IVP DAILY [facility] Last Admin: 07/12/18 10:13 Dose: Not Given Iron Sucrose 200 mg/ Sodium (Chloride) 110 mls @ 110 mls/hr IVPB DAILY [facility] Stop: 07/15/18 11:00 Last Admin: 07/12/18 10:16 Dose: Not Given Dextrose/Sodium Chloride (Dextrose 5%/0.45% Ns 1000 Ml) 1,000 mls @ 60 mls/hr IV .[id number] [facility] Last Admin: 07/11/18 11:20 Dose: Not Given Pantoprazole Sodium (Protonix Inj) 40 mg IVP DAILY [facility] Last Admin: 07/12/18 10:14 Dose: Not Given Sucralfate (Carafate Tab) 1 gm PO 0600,1600 [facility] Last Admin: 07/13/18 05:27 Dose: 1 gm - Labs Labs: 07/13/18 00:28 07/13/18 00:28 PT 15.6 SECONDS (9.4-12.5) H 07/10/18 13:30 INR 1.36 07/10/18 13:30 APTT 26.7 Seconds (25.1-36.5) 07/10/18 13:30 - Constitutional Appears: Non-toxic, No Acute Distress - Head Exam Head Exam: ATRAUMATIC, NORMOCEPHALIC - Eye Exam Eye Exam: EOMI, Normal appearance - ENT Exam ENT Exam: Mucous Membranes Moist - Neck Exam Neck Exam: Normal Inspection - Respiratory Exam Respiratory Exam: Clear to Ausculation Bilateral, NORMAL BREATHING PATTERN. absent: Accessory Muscle Use - Cardiovascular Exam Cardiovascular Exam: RRR, +S1, +S2 - GI/Abdominal Exam GI & Abdominal Exam: Soft, Normal Bowel Sounds. absent: Guarding Assessment and Plan - Assessment and Plan (Free Text) Assessment: 57 year old male with a past medical history of ITP who presented with weakness, fatigue, and shortness of breath and was found to have a hemoglobin of 5 with imaging showing a right cecal mass with lesions consistent with metastatic disease. Patient was transfused 4 units of PRBCs with adequate response and is now pending colonoscopy and EGD. Dr. Ari Wade has been consulted for biopsy of liver or lung lesions to confirm staging of presumed colorectal cancer. Patient underwent EKG and chest X-ray pre-operatively which showed Normal Sinus Rhythm and no active disease. Case was reviewed and discussed with attending physician, Dr. Spaulding
[2018-07-13] MEDS ORDERED: Sodium Chloride 0.9% 1,000 ML IV SCH ×2 (13:00→16:30)
--- NOTE | 2018-07-13 13:05 | RAD ---
Date of service: 07/13/2018 HISTORY: Clearance for endoscopy COMPARISON: 06/15/2018 FINDINGS: LUNGS: No active pulmonary disease. PLEURA: No significant pleural effusion identified, no pneumothorax apparent. CARDIOVASCULAR: No aortic atherosclerotic calcification present. Normal cardiac size. No pulmonary vascular congestion. OSSEOUS STRUCTURES: No significant abnormalities. VISUALIZED UPPER ABDOMEN: Normal. OTHER FINDINGS: None. IMPRESSION: No active disease.
--- NOTE | 2018-07-13 14:28 | CARD ---
APPROVED REPORT Date of service: 07/13/2018 EKG Measurement Heart [id number] <Conclusion> Normal sinus rhythm Normal ECG
[2018-07-13] MEDS ORDERED: Propofol 10 mg/ml Inj (20 ML) ONE ×2 (16:10→16:12)
[2018-07-13] MEDS ORDERED: Phenylephrine 10 mg/ml Inj ONE (16:30)
[2018-07-13 19:52] LABS: BASO # 0.01 K/mm3 (0.0-2.0); BASO % 0.1 % (0.0-3.0); EOS # 0.1 (0.0-0.7); EOS % 1.5 % (1.5-5.0); GRAN # 6.36 (1.4-6.5); HEMOGLOBIN 9.9 g/dL (14.0-18.0); LYMPH # 1.9 (1.2-3.4); LYMPH % 21.3 % (22.0-35.0); MEAN CELL VOLUME 72.9 fl (80.0-105.0); MEAN CORPUSCULAR HEMOGLOBIN 21.1 pg (25.0-35.0); MEAN CORPUSCULAR HGB CONC 28.9 g/dl (31.0-37.0); MONO # 0.6 (0.1-0.6); MONO % 6.1 % (1.0-6.0); PLATELET COUNT 279 10^3/uL (120.0-450.0); RBC 4.69 10^6/uL (3.5-6.1); RED CELL DISTRIBUTION WIDTH 23.6 % (11.5-14.5)
[2018-07-14 06:26] LABS: BASO # 0.01 K/mm3 (0.0-2.0); BASO % 0.1 % (0.0-3.0); EOS # 0.2 (0.0-0.7); EOS % 2.5 % (1.5-5.0); HEMOGLOBIN 8.6 g/dL (14.0-18.0); LYMPH # 1.5 (1.2-3.4); LYMPH % 20.1 % (22.0-35.0); MEAN CELL VOLUME 72.2 fl (80.0-105.0); MEAN CORPUSCULAR HEMOGLOBIN 21.3 pg (25.0-35.0); MEAN CORPUSCULAR HGB CONC 29.6 g/dl (31.0-37.0); MONO # 0.6 (0.1-0.6); MONO % 8.3 % (1.0-6.0); PLATELET COUNT 261 10^3/uL (120.0-450.0); RBC 4.03 10^6/uL (3.5-6.1); RED CELL DISTRIBUTION WIDTH 24.4 % (11.5-14.5); WHITE BLOOD COUNT 7.7 10^3/uL (4.5-11.0)
[2018-07-14 06:32] LABS: INR 1.37; PARTIAL THROMBOPLASTIN TIME 26.9 Seconds (25.1-36.5); PROTHROMBIN TIME 15.9 SECONDS (9.4-12.5)
[2018-07-14 08:15] LABS: ALB/GLOB RATIO 1.1 (1.1-1.8); ALBUMIN 2.8 g/dL (3.0-4.8); ALT/SGPT 27 U/L (7-56); AST/SGOT 22 U/L (17-59); BLOOD UREA NITROGEN 12 mg/dL (7-21); CALCIUM 8.2 mg/dL (8.4-10.5); GFR NON-AFRICAN AMERICAN > 60
[2018-07-14] MEDS ORDERED: Midazolam 2 MG/2 ML VIAL ONE (10:08)
[2018-07-14] MEDS ORDERED: Lidocaine 1% Inj (20ml) ONE (10:30)
[2018-07-14] MEDS ORDERED: Oxycodone/Acetaminophen 5/325 mg Tab PO PRN (10:41)
[2018-07-14] MEDS ORDERED: Sodium Chloride 0.45% 1,000 ML IV SCH (10:45)
--- NOTE | 2018-07-14 11:11 | CP.PCM.PN ---
<Vitor Brooks - Last Filed: 07/14/18 11:08> Subjective - Date & Time of Evaluation Date of Evaluation: 07/14/18 Time of Evaluation: 08:05 - Subjective Subjective: PGY6 GI Fellow Progress Note Patient seen and examined bedside this morning. The patient states that he has no discomfort at this time. Patient struggling with diagnosis of multiple, likely-malignant lesions in colon, liver, lungs. No events overnight. 12 system ROS performed and negative except where stated Objective - Vital Signs/Intake and Output Vital Signs (last 24 hours): Temp Pulse Resp BP Pulse Ox 98.1 F 77 20 104/68 971 H 07/14/18 09:01 07/14/18 09:01 07/14/18 09:01 07/14/18 09:01 07/14/18 09:01 - Medications Medications: Current Medications Acetaminophen (Tylenol 325mg Tab) 650 mg PO Q6H PRN PRN Reason: Fever >100.4 F Last Admin: 07/13/18 00:16 Dose: 650 mg Citalopram Hydrobromide (Celexa) 10 mg PO DAILY [facility] Last Admin: 07/13/18 09:38 Dose: Not Given Clonazepam (Klonopin) 0.5 mg PO TID [facility]; Protocol Last Admin: 07/13/18 17:26 Dose: Not Given Folic Acid (Folic Acid) 1 mg IVP DAILY [facility] Last Admin: 07/13/18 09:38 Dose: Not Given Iron Sucrose 200 mg/ Sodium (Chloride) 110 mls @ 110 mls/hr IVPB DAILY [facility] Stop: 07/15/18 11:00 Last Admin: 07/13/18 09:37 Dose: Not Given Dextrose/Sodium Chloride (Dextrose 5%/0.45% Ns 1000 Ml) 1,000 mls @ 60 mls/hr IV .[id number] [facility] Last Admin: 07/11/18 11:20 Dose: Not Given Sodium Chloride (Sodium Chloride 0.9%) 1,000 mls @ 100 mls/hr IV .Q10H JOE Sodium Chloride (Sodium Chloride 0.45%) 1,000 mls @ 80 mls/hr IV .[id number] [facility] Stop: 07/14/18 12:00 Ondansetron HCl (Zofran Inj) 4 mg IVP Q6H PRN PRN Reason: Nausea/Vomiting Oxycodone/Acetaminophen (Percocet 5/325 Mg Tab) 1 tab PO Q4H PRN PRN Reason: Pain, moderate (4-7) Stop: 07/17/18 10:42 Pantoprazole Sodium (Protonix Inj) 40 mg IVP DAILY [facility] Last Admin: 07/13/18 09:37 Dose: Not Given Sucralfate (Carafate Tab) 1 gm PO 0600,1600 [facility] Last Admin: 07/14/18 05:22 Dose: 1 gm - Labs Labs: 07/14/18 06:00 07/14/18 06:00 PT 15.9 SECONDS (9.4-12.5) H 07/14/18 06:00 INR 1.37 07/14/18 06:00 APTT 26.9 Seconds (25.1-36.5) 07/14/18 06:00 - Constitutional Appears: Non-toxic, No Acute Distress - Eye Exam Eye Exam: EOMI, PERRL - ENT Exam ENT Exam: Mucous Membranes Moist - Respiratory Exam Respiratory Exam: Clear to Ausculation Bilateral. absent: Rales, Rhonchi, Wheezes - Cardiovascular Exam Cardiovascular Exam: RRR, +S1, +S2 - GI/Abdominal Exam GI & Abdominal Exam: Soft, Normal Bowel Sounds. absent: Distended, Firm, G uarding, Rigid, Tenderness, Organomegaly - Extremities Exam Extremities Exam: Normal Inspection. absent: Pedal Edema - Neurological Exam Neurological Exam: Alert, Awake, Oriented x3 - Psychiatric Exam Psychiatric exam: Normal Affect, Normal Mood - Skin Skin Exam: Dry, Warm Assessment and Plan - Assessment and Plan (Free Text) Assessment: Patient is a 57yo male with PMHx significant for ITP and FELIX who presented with anemia. Patient found to have abnormal imaging with colon, liver and lung lesions. -Cecal mass s/p colonoscopy and biopsy - presumed malignant with metastatic disease to liver/lung -Liver/lung lesions -Anemia likely a result of colon mass Plan: -S/P colonoscopy with friable mass distorting the normal anatomy of the cecum, biopsy obtained, presumed malignant -Concern for metastatic spread to liver/lung -Pt for IR bx of liver lesion today -Await pathology -Consider surgical evaluation - nearly obstructing lesion at cecum; not obstructed presently -Plan per oncology -Soft, low fiber diet recommended -Consider nutritional support with Boost if needed -No further recommendations at this juncture <Delonte Galvez V - Last Filed: 07/14/18 22:48> Objective - Vital Signs/Intake and Output Vital Signs (last 24 hours): Temp Pulse Resp BP Pulse Ox 98.2 F 86 20 127/82 99 07/14/18 18:00 07/14/18 18:00 07/14/18 18:00 07/14/18 18:00 07/14/18 18:00 Intake and Output: 07/14/18 07/15/18 18:59 06:59 Intake Total 590 Balance 590 - Labs Labs: 07/14/18 06:00 07/14/18 06:00 PT 15.9 SECONDS (9.4-12.5) H 07/14/18 06:00 INR 1.37 07/14/18 06:00 APTT 26.9 Seconds (25.1-36.5) 07/14/18 06:00 Attending/Attestation - Attestation I have personally seen and examined this patient.: Yes I have fully participated in the care of the patient.: Yes I have reviewed all pertinent clinical information, including history, physical exam and plan: Yes Notes (Text): This is an addendum to GI progress report dictated by the GI Fellow. The patient was seen and examined earlier. Medical records, lab studies, imagings were reviewed. Last 24 hours events reviewed. Agreed with the above treatment plan as outlined in GI Fellow 's notes with the addition of the following Status post EGD colonoscopy Awaiting for the path Patient would need [facility] 07/14/18 22:48
--- NOTE | 2018-07-14 16:31 | CP.PCM.DIS ---
Provider - Provider Date of Admission: 07/10/18 15:18 Attending physician: Christo Franco MD Consults: 07/10/18 15:22 Consult [Physician Consult] Stat Comment: Consulting Provider: Janice Guzman Consulting Physician: Janice Guzman Reason for Consult: Per PMD 07/10/18 16:51 Physician Consult Routine Comment: Consulting Provider: Delonte Galvez V Consulting Physician: Delonte Galvez V Reason for Consult: anemia, dark stools 07/10/18 22:32 Social Work Referral Routine Comment: d/c plan Physician Instructions: Reason For Exam: eval 07/13/18 10:39 Physician Consult Routine Comment: Consulting Provider: Ari Wade Consulting Physician: Ari Wade Reason for Consult: staging for presumed CRC Time Spent in preparation of Discharge (in minutes): 55 Hospital Course - Lab Results Lab Results: Most Recent Lab Values WBC 7.7 10^3/uL (4.5-11.0) 07/14/18 06:00 RBC 4.03 10^6/uL (3.5-6.1) 07/14/18 06:00 Hgb 8.6 g/dL (14.0-18.0) L 07/14/18 06:00 Hct 29.1 % (42.0-52.0) L 07/14/18 06:00 MCV 72.2 fl (80.0-105.0) L 07/14/18 06:00 MCH 21.3 pg (25.0-35.0) L 07/14/18 06:00 MCHC 29.6 g/dl (31.0-37.0) L 07/14/18 06:00 RDW 24.4 % (11.5-14.5) H 07/14/18 06:00 Plt Count 261 10^3/uL (120.0-450.0) 07/14/18 06:00 Gran % 69.0 % (50.0-68.0) H 07/14/18 06:00 Lymph % (Auto) 20.1 % (22.0-35.0) L 07/14/18 06:00 [place] % (Auto) 8.3 % (1.0-6.0) H 07/14/18 06:00 Eos % (Auto) 2.5 % (1.5-5.0) 07/14/18 06:00 Baso % (Auto) 0.1 % (0.0-3.0) 07/14/18 06:00 Gran # 5.30 (1.4-6.5) 07/14/18 06:00 Lymph # (Auto) 1.5 (1.2-3.4) 07/14/18 06:00 [place] # (Auto) 0.6 (0.1-0.6) 07/14/18 06:00 Eos # (Auto) 0.2 (0.0-0.7) 07/14/18 06:00 Baso # (Auto) 0.01 K/mm3 (0.0-2.0) 07/14/18 06:00 Neutrophils % (Manual) 79 % (50.0-70.0) H 07/10/18 13:30 Lymphocytes % (Manual) 18 % (22.0-35.0) L 07/10/18 13:30 Monocytes % (Manual) 3 % (1.0-6.0) 07/10/18 13:30 Platelet Evaluation Normal (NORMAL) 07/10/18 13:30 Hypochromasia 2+ 07/10/18 13:30 Poikilocytosis (manual 1+ 07/10/18 13:30 Anisocytosis (manual) 1+ 07/10/18 13:30 Microcytosis (manual) 3+ 07/10/18 13:30 Tear Drop Cells Slight 07/10/18 13:30 Ovalocytes 1+ 07/10/18 13:30 PT 15.9 SECONDS (9.4-12.5) H 07/14/18 06:00 INR 1.37 07/14/18 06:00 APTT 26.9 Seconds (25.1-36.5) 07/14/18 06:00 Sodium 139 mmol/L (132-148) 07/14/18 06:00 Potassium 3.9 mmol/L (3.6-5.0) 07/14/18 06:00 Chloride 107 mmol/L (98-107) 07/14/18 06:00 Carbon Dioxide 26 mmol/L (21-33) 07/14/18 06:00 Anion Gap 11 (10-20) 07/14/18 06:00 BUN 12 mg/dL (7-21) 07/14/18 06:00 Creatinine 0.8 mg/dl (0.8-1.5) 07/14/18 06:00 Est GFR ( Amer) > 60 07/14/18 06:00 Est GFR (Non-Af Amer) > 60 07/14/18 06:00 Random Glucose 116 mg/dL (70-110) H 07/14/18 06:00 Calcium 8.2 mg/dL (8.4-10.5) L 07/14/18 06:00 Phosphorus 4.0 mg/dL (2.5-4.5) 07/12/18 05:30 Magnesium 1.9 mg/dL (1.7-2.2) 07/12/18 05:30 Iron 14 ug/dL (45-180) L 07/10/18 13:30 TIBC 295 ug/dL (261-462) 07/10/18 13:30 % Saturation 5 % (20-55) L 07/10/18 13:30 Total Bilirubin 0.5 mg/dL (0.2-1.3) 07/14/18 06:00 AST 22 U/L (17-59) 07/14/18 06:00 ALT 27 U/L (7-56) 07/14/18 06:00 Alkaline Phosphatase 141 U/L (38-126) H 07/14/18 06:00 Total Protein 5.4 g/dL (5.8-8.3) L 07/14/18 06:00 Albumin 2.8 g/dL (3.0-4.8) L 07/14/18 06:00 Globulin 2.5 gm/dL 07/14/18 06:00 Albumin/Globulin Ratio 1.1 (1.1-1.8) 07/14/18 06:00 Blood Type O POSITIVE 07/12/18 05:30 Blood Type Confirm O POSITIVE 07/10/18 14:15 Antibody Screen Negative 07/12/18 05:30 Crossmatch See Detail 07/12/18 05:30 BBK History Checked Patient has bt 07/12/18 05:30 - Hospital Course Hospital Course: 57 year old with a past medical history of ITP, iron deficiency anemia, and an affective disorder who presented to [facility] [facility] for weakness and shortness of breath and was found to have a hemoglobin of 5 along with imaging concerning for a right cecal mass as well as metastatic lesion in the liver and lung. The patient was tranfused 4 units of PRBCs with adequate response and given IV iron and admitted for further work-up for likely underlying malignancy. The patient underwent a colonoscopy that revealed a large, partially obstructing, likely malignant mass in the ascending colon that was biopsied. There were also two, 8 mm polyps identified and one smaller than 5 mm polyp, all of which were sessile. He was then scheduled the next day for CT guided biopsy of the liver lesion by interventional radiology.The Patient hospital course was complicated by grief secondary to carrying a presumptive diagnosis of stage IV colorectal cancer. He was discharged with strict follow up instruction to come to Dr. Spaulding's office this . Psychiatry, Dr. Camacho, assisted in managing the patient's denial and grief during his stay. - Date & Time of H&P Date of H&P: 07/14/18 Time of H&P: 16:42 Discharge Exam - Head Exam Head Exam: ATRAUMATIC, NORMOCEPHALIC - Eye Exam Eye Exam: EOMI, Normal appearance, PERRL - ENT Exam ENT Exam: Mucous Membranes Moist, Normal Oropharynx - Neck Exam Neck exam: Normal Inspection - Respiratory Exam Respiratory Exam: Clear to PA & Lateral. absent: Accessory Muscle Use - Cardiovascular Exam Cardiovascular Exam: RRR, +S1, +S2 - GI/Abdominal Exam GI & Abdominal Exam: absent: Guarding, Rebound - Extremities Exam Extremities exam: normal inspection - Neurological Exam Neurological exam: Alert, CN II-XII Intact, Oriented x3 - Psychiatric Exam Psychiatric exam: Depressed - Skin Skin Exam: Dry, Normal Color, Warm Discharge Plan - Follow Up Plan Condition: FAIR Disposition: HOME/ ROUTINE Additional Instructions: 1) Patient to follow up with Dr. Spaulding's office on of this week. 2) Patient to remain on soft, low fiber diet.
[2018-07-14 18:00] VITALS: BP 127/82; PULSE 86; RESP 20; TEMP 98.2; O2SAT 99
--- NOTE | 2018-07-14 19:23 | CT ---
PROCEDURE: CT guided liver biopsy. HISTORY: Large cecal mass. Multiple liver lesions and pulmonary nodules consistent with metastatic disease. Evaluate for malignancy PHYSICIAN(S): Ari Wade MD. TECHNIQUE: The relative risks and indications of the procedure were explained to the patient and consent obtained. The patient was placed supine on the CT scanner and preliminary images through the liver obtained. Conscious sedation and monitoring were provided throughout the procedure by a nurse. Large confluent low-attenuation masses are noted in both lobes.. A subxyphoid approach was selected and the area prepped and draped in the usual sterile fashion. 1% Xylocaine was used to anesthetize the skin and soft tissues. A 17-gauge guiding needle was advanced into the large confluent lateral segment masses.. Its position was confirmed with CT. Using coaxial technique, multiple core biopsies were obtained. The postprocedure images show no evidence of significant hemorrhage. IMPRESSION: 1. CT-guided liver biopsy as described above.
--- NOTE | 2018-07-14 23:37 | PN ---
DATE: 07/14/2018 FOLLOWUP NOTE SUBJECTIVE: The patient is was seen initially by this sign writer letterer or painter in the emergency room last week Friday for evaluation of mood symptoms and the patient was having history of mental illness and was followed up with Dr. Aguilar in the community. Please see initial evaluation note for more detailed information. Over the course of this hospitalization, the patient was diagnosed with stage IV colorectal cancer. The patient has metastasis in liver. The patient was seen by Dr. Good on 07/14/2018. The patient was verbally abusive towards staff, irritable, and very hard to deal with, but there is no physical aggression. There is no agitation or psychosis. The patient was followed up today. The patient seems to be not happy to see this sign writer letterer or painter. The patient reported that he does not need her help. The patient said that he has followup appointment with Dr. Fidencio Aguilar and he will follow up with him. The patient denied any thoughts of harming himself or others and was brushing this sign writer letterer or painter off. Collaterals were obtained from the nursing staff. The patient never verbalized any thoughts of killing himself or others, but verbally abusive towards staff. PHYSICAL EXAMINATION: VITAL SIGNS: Stable. Temperature 98.1, pulse 72, blood pressure 127/78, respirations 15, oxygen saturation is 98%. MEDICATIONS: Reviewed, confirmed by the pharmacy. The patient has tendency of refusing medication. He has his own ideas of what medication might be helpful to him. LABORATORY DATA: Labs reviewed. Most recent was from today. MENTAL STATUS EXAMINATION: The patient presented to be irritable and angry and not pleasant. Mood described as fine. Affect was constricted, irritable. Thought process seems to be concrete. Thought content: The patient denied visual, auditory, tactile hallucinations. Denied paranoid ideations. The patient denied any thoughts of harming himself or others. Denied intent or plan, but reported feeling very irritable. Insight and judgment seems to be limited, but improving. Impulses are well controlled. IMPRESSION: Mood disorder, not otherwise specified, rule out bipolar spectrum disorder, rule out mood disorder due to general medical condition. PLAN: Continue current management. Continue current medications. The patient is not suicidal. Denied any thoughts of harming himself or others. The patient has followup appointment with Dr. Fidencio Aguilar. The patient was advised to continue current medications. The patient posed no imminent danger to self or others. The patient has followup appointment with Hematology/Oncology. This sign writer letterer or painter will sign off. Should you have any questions, give me a call. Janice Guzman MD
--- NOTE | 2018-07-21 15:57 | PQF ---
PROVIDER RESPONSE TEXT: Due to chronic blood loss from a bleeding ascending colon carcinoma REVIEWER QUERY TEXT: Anemia Type Anemia is documented in the Medical Record. Please specify the cause (includes suspected or probable cause) Such as: -- Due to acute blood loss -- Due to chronic blood loss -- Due to iron deficiency -- Due to postoperative blood loss -- Due to chronic disease -- Other, please specify The patient's Clinical Indicators include: Doctor, Noted "acute drop in hemoglobin" and transfusions given please verify cause of anemia. Query created by: Kelly Bay on 07/15/2018 10:15 AM Electronically signed by: Mk Spaulding MD 07/21/2018 3:54 PM
== END 2018-07-14 21:00 | disposition home or self-care (01) | DRG 375 ==
LOC: ED 11:36 → ERH 15:18 → 3RSO 18:06
PROVIDERS: ADMIT Family Medicine; ATTEND Family Medicine
PROC: 30233N1 Transfusion of Nonautologous Red Blood Cells into Peripheral Vein, Percutaneous Approach (ICD-10-PCS; 2018-07-12)
PROC: 0DBK8ZX Excision of Ascending Colon, Via Natural or Artificial Opening Endoscopic, Diagnostic (ICD-10-PCS; principal; 2018-07-13 15:15)
PROC: 0DB68ZX Excision of Stomach, Via Natural or Artificial Opening Endoscopic, Diagnostic (ICD-10-PCS; 2018-07-13 15:15)
PROC: 0FB03ZX Excision of Liver, Percutaneous Approach, Diagnostic (ICD-10-PCS; 2018-07-14)
DX: C18.2 Malignant neoplasm of ascending colon (principal); C78.7 Secondary malignant neoplasm of liver and intrahepatic bile duct; C78.00 Secondary malignant neoplasm of unspecified lung; K92.2 Gastrointestinal hemorrhage, unspecified; D69.3 Immune thrombocytopenic purpura; D50.0 Iron deficiency anemia secondary to blood loss (chronic); R63.4 Abnormal weight loss; R63.0 Anorexia; F32.9 Major depressive disorder, single episode, unspecified; K64.1 Second degree hemorrhoids; K63.5 Polyp of colon; K31.7 Polyp of stomach and duodenum; Z87.891 Personal history of nicotine dependence; Z88.0 Allergy status to penicillin

== ENCOUNTER 2018-08-24 15:07 | Inpatient (IN) | payer MEDICARE ==
[2018-08-24 15:24] VITALS: BMI 22.0
--- NOTE | 2018-08-24 15:45 | ED PDOC ---
Arrival/HPI - General Chief Complaint: Medical Clearance Time Seen by Provider: 08/24/18 15:39 Historian: Patient - History of Present Illness Narrative History of Present Illness (Text): 08/24/18 15:42 58yo male with past medical history of Colon CA with mets, anemia referred to emergency department by Dr. Spaulding for admission. Patient states he is scheduled for unknown stomach surgery and was referred to emergency department for clearance for the admission. He denies abdominal pain, nausea, vomiting, diarrhea, constipation, melena, hematemesis, chest pain, SOB, any other complaint. Past Medical History - Provider Review Nursing Documentation Reviewed: Yes - Infectious Disease Hx of Infectious Diseases: None - Cardiac Hx Pacemaker: No - Pulmonary Hx Respiratory Disorders: Yes Hx Bronchitis: Yes - Neurological Hx Neurological Disorder: No - HEENT Hx HEENT Disorder: No - Renal Hx Renal Disorder: No - Endocrine/Metabolic Hx Endocrine Disorders: No - Hematological/Oncological Hx Blood Disorders: Yes Hx Anemia: Yes Hx Cancer: Yes (colon ca with mets; liver ca ; lung ca) Other/Comment: ITP dx about 5 yrs ago - Integumentary Hx Dermatological Disorder: No - Musculoskeletal/Rheumatological Hx Musculoskeletal Disorders: Yes - Gastrointestinal Hx Gastrointestinal Disorders: Yes Hx Gastroesophageal Reflux: Yes Other/Comment: LIVER PROBLEM, pt stated " I was told I had a problem with my liver last week." - Genitourinary/Gynecological Hx Genitourinary Disorders: No - Psychiatric Hx Emotional Abuse: No Hx Physical Abuse: No Hx Substance Use: No - Anesthesia Hx Anesthesia Reactions: No Hx Malignant Hyperthermia: No - Suicidal Assessment Feels Threatened In Home Enviroment: No Family/Social History - Physician Review Nursing Documentation Reviewed: Yes Family/Social History: Unknown Family HX Smoking Status: Former Smoker Hx Alcohol Use: Yes (RARE IN THE PAST) Hx Substance Use: No Allergies/Home Meds Allergies/Adverse Reactions: Allergies Penicillins Allergy (Mild, Verified 07/10/18 13:14) RASH Home Medications: Home Meds Medication Instructions Recorded Confirmed Cholecalciferol [Vitamin D 1000 IU] 50,000 iu PO QWK 07/10/18 08/10/18 Ferrous Sulfate [Feosol] 325 mg PO BID 07/10/18 08/10/18 Omeprazole 20 mg PO DAILY 07/10/18 08/10/18 Prednisone [Amber] 5 mg PO DAILY 07/10/18 08/10/18 clonazePAM [Klonopin] 0.5 mg PO TID 07/10/18 08/10/18 Folic Acid 1 mg PO MWF 08/06/18 08/10/18 Review of Systems - Physician Review All systems were reviewed & negative as marked: Yes - Review of Systems Constitutional: Normal Eyes: Normal ENT: Normal Respiratory: Normal Cardiovascular: Normal Gastrointestinal: Normal Genitourinary Male: Normal Musculoskeletal: Normal Skin: Normal Neurological: Normal Endocrine: Normal Hemo/Lymphatic: Normal Psychiatric: Normal Physical Exam Vital Signs Reviewed: Yes Temperature: Afebrile Blood Pressure: Normal Pulse: Regular Respiratory Rate: Normal Appearance: Positive for: Well-Appearing, Non-Toxic, Comfortable Pain Distress: None Mental Status: Positive for: Alert and Oriented X 3 - Systems Exam Head: Present: Atraumatic, Normocephalic Pupils: Present: PERRL Extroacular Muscles: Present: EOMI Conjunctiva: Present: Normal Mouth: Present: Moist Mucous Membranes Neck: Present: Normal Range of Motion Respiratory/Chest: Present: Clear to Auscultation, Good Air Exchange. No: Respiratory Distress, Accessory Muscle Use Cardiovascular: Present: Regular Rate and Rhythm, Normal S1, S2. No: Murmurs Abdomen: No: Tenderness, Distention, Peritoneal Signs Back: Present: Normal Inspection Upper Extremity: Present: Normal Inspection. No: Cyanosis, Edema Lower Extremity: Present: Normal Inspection. No: Edema Neurological: Present: GCS=15, CN II-XII Intact, Speech Normal Skin: Present: Warm, Dry, Normal Color. No: Rashes Psychiatric: Present: Alert, Oriented x 3, Normal Insight, Normal Concentration Medical Decision Making ED Course and Treatment: 08/24/18 19:16 PT referred to emergency department by Dr. Spaulding for admission for a bowel resection. PT was AAOX3 and hemodynamically stable and in no distress. Labs EKG chest xray Pt declined lab work and EKG in emergency department . states his PMD did all the pre op work Chest xray IMPRESSION: No active disease. No significant interval change compared to the prior examination(s). Pt admitted to Dr. Alvarado service, per Dr. Spaulding 08/24/18 20:13 Pt later allowed the nurse to take his VS and he was found to be febrile and Tylenol given He also allowed the nurse to draw his blood and EKG done EKG NSR @ 93bpm. Nonspecific T wave abnormality. Lab was reviewed and it is unchanged from his lab from earlier today. No leukocytosis. Disposition/Present on Arrival - Present on Arrival Any Indicators Present on Arrival: No History of DVT/PE: No History of Uncontrolled Diabetes: No Urinary Catheter: No History of Decub. Ulcer: No History Surgical Site Infection Following: None - Disposition Have Diagnosis and Disposition been Completed?: Yes Diagnosis: Colon cancer, Anemia Disposition: HOSPITALIZED Disposition Time: 15:50 Patient Plan: Admission Patient Problems: Current Active Problems Problem Status Onset Colon cancer Acute Condition: STABLE
--- NOTE | 2018-08-24 16:28 | RAD ---
Date of service: 08/24/2018 HISTORY: admission COMPARISON: 07/13/2018 FINDINGS: LUNGS: No active pulmonary disease. PLEURA: No significant pleural effusion identified, no pneumothorax apparent. CARDIOVASCULAR: No atherosclerotic calcification present No radiographic findings to suggest acute or significant cardiovascular disease. OSSEOUS STRUCTURES: No significant abnormalities. VISUALIZED UPPER ABDOMEN: Normal. OTHER FINDINGS: None. IMPRESSION: No active disease. No significant interval change compared to the prior examination(s).
--- NOTE | 2018-08-24 17:20 | CP.PCM.HP ---
<Chang Leon - Last Filed: 08/24/18 17:29> History of Present Illness - History of Present Illness History of Present Illness: PGY-2 heme/onc H&P note for Dr Luis Spaulding Mr Blackman is a 57 yo male with a PMHx of ITP, FELIX, iron deficiency anemia, affective disorder who was recently found to have a cecal mass s/p colonoscopy and biopsy now known to be colonic adenocarcinoma with metastatic disease to the liver and lung presents to the ED from Dr Spaulding's office for clearance for surgery. PMD: Dr Wai Spaulding Family History- Father- bladder cancer, Brother-Liver cancer Social History- quit tobacco as a teenager, denies alcohol or illicit drug use Surgical History- multiple scalp cyst removal Present on Admission - Present on Admission Any Indicators Present on Admission: No Review of Systems - Review of Systems All systems: reviewed and no additional remarkable complaints except (as stated in HPI) Past Patient History - Infectious Disease Hx of Infectious Diseases: None - Past Social History Smoking Status: Former Smoker - CARDIAC Hx Pacemaker: No - PULMONARY Hx Respiratory Disorders: Yes Hx Bronchitis: Yes - NEUROLOGICAL Hx Neurological Disorder: No - HEENT Hx HEENT Problems: No - RENAL Hx Chronic Kidney Disease: No - ENDOCRINE/METABOLIC Hx Endocrine Disorders: No - HEMATOLOGICAL/ONCOLOGICAL Hx Blood Disorders: Yes Hx Anemia: Yes Hx Cancer: Yes (colon ca with mets; liver ca ; lung ca) Other/Comment: ITP dx about 5 yrs ago - INTEGUMENTARY Hx Dermatological Problems: No - MUSCULOSKELETAL/RHEUMATOLOGICAL Hx Musculoskeletal Disorders: Yes - GASTROINTESTINAL Hx Gastrointestinal Disorders: Yes Hx Gastroesophageal Reflux: Yes Other/Comment: LIVER PROBLEM, pt stated " I was told I had a problem with my liver last week." - GENITOURINARY/GYNECOLOGICAL Hx Genitourinary Disorders: No - PSYCHIATRIC Hx Emotional Abuse: No Hx Physical Abuse: No Hx Substance Use: No - SURGICAL HISTORY Hx Surgeries: Yes - ANESTHESIA Hx Anesthesia Reactions: No Hx Malignant Hyperthermia: No Meds Allergies/Adverse Reactions: Allergies Allergy/AdvReac Type Severity Reaction Status Date / Time Penicillins Allergy Mild RASH Verified 07/10/18 13:14 Physical Exam - Additional Findings Additional findings: - Head Exam Head Exam: ATRAUMATIC, NORMOCEPHALIC - Eye Exam Eye Exam: EOMI, Normal appearance, PERRL - ENT Exam ENT Exam: Mucous Membranes Moist, Normal Oropharynx - Neck Exam Neck exam: Normal Inspection - Respiratory Exam Respiratory Exam: Clear to PA & Lateral. absent: Accessory Muscle Use - Cardiovascular Exam Cardiovascular Exam: RRR, +S1, +S2 - GI/Abdominal Exam GI & Abdominal Exam: absent: Guarding, Rebound - Extremities Exam Extremities exam: normal inspection - Neurological Exam Neurological exam: Alert, CN II-XII Intact, Oriented x3 - Psychiatric Exam Psychiatric exam: Depressed - Skin Skin Exam: Dry, Normal Color, Warm Assessment & Plan - Assessment and Plan (Free Text) Plan: Mr Blackman is a 57 yo male with a PMHx of ITP, FELIX, iron deficiency anemia, affec tive disorder who was recently found to have a cecal mass s/p colonoscopy and biopsy now known to be colonic adenocarcinoma with metastatic disease to the liver and lung presents to the ED from Dr Spaulding's office for clearance for surgery: Adenocarcinoma of the Colon with Mets to Liver and Lung -Diagnosed 07/2018 -consult surgery, Dr Padilla -type and screen -PT/PTT -soft low fiber diet as recommended by GI on previous admission -NPO after midnight for potential surgical intervention Anemia -Hgb on admission: 8.2 -On previous admission in early Jul he received 4 units pRBCs -He comes to transfusion clinic for iron transfusions -continue home med ferrous sulfate 325mg po bid -continue home med folic acid 1mg po mwf Affective Disorder -continue home med klonopin 0.5mg po tid -continue home med celexa 10mg po qd GERD -continue home med sucralfate 1g po bid -continue home med omeprazole 20mg op qd PPX -SCDs -holding AC for now for potential surgical intervention -soft low fiber diet as recommended by GI on previous admission <Jasson CHAUDHARI,Luis - Last Filed: 08/24/18 20:09> Results - Vital Signs Recent Vital Signs: Last Vital Signs Temp 101 F H 08/24/18 18:30 Pulse 98 H 08/24/18 18:30 Resp 18 08/24/18 18:30 BP 106/81 08/24/18 18:30 Pulse Ox 99 08/24/18 18:30 - Labs Result Diagrams: 08/24/18 19:41 08/24/18 19:41 Labs: Laboratory Results - last 24 hr 08/24/18 08/24/1808/24/19 19:41 19:41 19:41 WBC 10.5 RBC 3.38 L Hgb 7.6 L Hct 26.5 L MCV 78.4 L MCH 22.5 L MCHC 28.7 L RDW 24.2 H Plt Count 287 Gran % 77.4 H Lymph % (Auto) 15.3 L [place] % (Auto) 6.8 H Eos % (Auto) 0.3 L Baso % (Auto) 0.2 Gran # 8.12 H Lymph # (Auto) 1.6 [place] # (Auto) 0.7 H Eos # (Auto) 0.0 Baso # (Auto) 0.02 PT 15.9 H INR 1.39 APTT 24.7 L Sodium 132 Potassium 4.6 Chloride 100 Carbon Dioxide 25 Anion Gap 12 BUN 12 Creatinine 0.7 L Est GFR ( Amer) > 60 Est GFR (Non-Af Amer) > 60 Random Glucose 109 Calcium 9.0 Total Bilirubin 0.4 AST 25 ALT 31 Alkaline Phosphatase 166 H Total Protein 5.9 Albumin 3.1 Globulin 2.8 Albumin/Globulin Ratio 1.1 Assessment & Plan - Assessment and Plan (Free Text) Plan: Agree with above assessment and plan
[2018-08-24 19:53] LABS: BASO # 0.02 K/mm3 (0.0-2.0); BASO % 0.2 % (0.0-3.0); EOS % 0.3 % (1.5-5.0); GRAN # 8.12 (1.4-6.5); GRAN % 77.4 % (50.0-68.0); HEMOGLOBIN 7.6 g/dL (14.0-18.0); LYMPH # 1.6 (1.2-3.4); LYMPH % 15.3 % (22.0-35.0); MEAN CELL VOLUME 78.4 fl (80.0-105.0); MEAN CORPUSCULAR HEMOGLOBIN 22.5 pg (25.0-35.0); MEAN CORPUSCULAR HGB CONC 28.7 g/dl (31.0-37.0); MONO # 0.7 (0.1-0.6); MONO % 6.8 % (1.0-6.0); PLATELET COUNT 287 10^3/uL (120.0-450.0); RBC 3.38 10^6/uL (3.5-6.1); RED CELL DISTRIBUTION WIDTH 24.2 % (11.5-14.5); WHITE BLOOD COUNT 10.5 10^3/uL (4.5-11.0)
[2018-08-24 20:02] LABS: INR 1.39; PARTIAL THROMBOPLASTIN TIME 24.7 Seconds (25.1-36.5); PROTHROMBIN TIME 15.9 SECONDS (9.4-12.5)
[2018-08-24 20:07] LABS: ALB/GLOB RATIO 1.1 (1.1-1.8); ALBUMIN 3.1 g/dL (3.0-4.8); ALT/SGPT 31 U/L (7-56); AST/SGOT 25 U/L (17-59); BLOOD UREA NITROGEN 12 mg/dL (7-21); GFR NON-AFRICAN AMERICAN > 60
[2018-08-25 07:42] LABS: BASO # 0.01 K/mm3 (0.0-2.0); BASO % 0.1 % (0.0-3.0); EOS # 0.1 (0.0-0.7); EOS % 1.1 % (1.5-5.0); GRAN # 5.78 (1.4-6.5); GRAN % 71.9 % (50.0-68.0); HEMOGLOBIN 7.4 g/dL (14.0-18.0); LYMPH # 1.5 (1.2-3.4); LYMPH % 18.1 % (22.0-35.0); MEAN CORPUSCULAR HGB CONC 29.5 g/dl (31.0-37.0); MONO # 0.7 (0.1-0.6); MONO % 8.8 % (1.0-6.0); PLATELET COUNT 235 10^3/uL (120.0-450.0); RBC 3.22 10^6/uL (3.5-6.1); RED CELL DISTRIBUTION WIDTH 23.9 % (11.5-14.5); WHITE BLOOD COUNT 8.1 10^3/uL (4.5-11.0)
[2018-08-25 07:50] LABS: INR 1.4; PARTIAL THROMBOPLASTIN TIME 27.5 Seconds (25.1-36.5); PROTHROMBIN TIME 16.2 SECONDS (9.4-12.5)
[2018-08-25 08:07] LABS: ALB/GLOB RATIO 1.1 (1.1-1.8); ALBUMIN 2.8 g/dL (3.0-4.8); ALT/SGPT 29 U/L (7-56); AST/SGOT 27 U/L (17-59); BLOOD UREA NITROGEN 16 mg/dL (7-21); CALCIUM 8.4 mg/dL (8.4-10.5); GFR NON-AFRICAN AMERICAN > 60
--- NOTE | 2018-08-25 08:32 | CP.PCM.CON ---
History of Present Illness - History of Present Illness History of Present Illness: Surgery: Dr. 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 who was recently found to have a cecal mass s/p colonoscopy and. Pt states that he has been experiencing intermittent diffuse abdominal pain for about a yr. During this time he states that he has not had a normal BM. He has frequent straining/constipation and has occassional blood in stool. He has required hospitalizations in the past for multiple blood transfusions 2/2 anemia. He states that he has had unintentional weight loss of at least 50lbs in the past 8months. He has had colonoscopy w. bx proven adenocarcinoma of cecum and bx proven liver mets. PMH: See above PSH: none Meds: MAR reviewed ALL: PCN Social: Former smoker, no EOTH/drugs Fhx: no family hx of CRC Review of Systems - Review of Systems All systems: reviewed and no additional remarkable complaints except (HPI) Past Patient History - Infectious Disease Hx of Infectious Diseases: None - Past Social History Smoking Status: Former Smoker - CARDIAC Hx Pacemaker: No - PULMONARY Hx Respiratory Disorders: Yes Hx Bronchitis: Yes - NEUROLOGICAL Hx Neurological Disorder: No - HEENT Hx HEENT Problems: No - RENAL Hx Chronic Kidney Disease: No - ENDOCRINE/METABOLIC Hx Endocrine Disorders: No - HEMATOLOGICAL/ONCOLOGICAL Hx Blood Disorders: Yes Hx Anemia: Yes Hx Cancer: Yes (colon ca with mets; liver ca ; lung ca) Other/Comment: ITP dx about 5 yrs ago - INTEGUMENTARY Hx Dermatological Problems: No - MUSCULOSKELETAL/RHEUMATOLOGICAL Hx Musculoskeletal Disorders: Yes Hx Falls: No - GASTROINTESTINAL Hx Gastrointestinal Disorders: Yes Hx Gastroesophageal Reflux: Yes Other/Comment: LIVER PROBLEM, pt stated " I was told I had a problem with my liver last week." - GENITOURINARY/GYNECOLOGICAL Hx Genitourinary Disorders: No - PSYCHIATRIC Hx Emotional Abuse: No Hx Physical Abuse: No - SURGICAL HISTORY Hx Surgeries: Yes - ANESTHESIA Hx Anesthesia Reactions: No Hx Malignant Hyperthermia: No Meds Allergies/Adverse Reactions: Allergies Allergy/AdvReac Type Severity Reaction Status Date / Time Penicillins Allergy Mild RASH Verified 07/10/18 13:14 - Medications Medications: Current Medications Citalopram Hydrobromide (Celexa) 10 mg PO DAILY [facility] Clonazepam (Klonopin) 0.5 mg PO TID [facility]; Protocol Last Admin: 08/24/18 19:49 Dose: 0.5 mg Ferrous Sulfate (Feosol) 324 mg PO BID [facility] Folic Acid (Folic Acid) 1 mg PO MWF [facility] Pantoprazole Sodium (Protonix Ec Tab) 40 mg PO ACB [facility] Sucralfate (Carafate Tab) 1 gm PO 0600,1600 [facility] Last Admin: 08/25/18 05:53 Dose: Not Given Physical Exam - Constitutional Appears: Non-toxic, No Acute Distress - Head Exam Head Exam: ATRAUMATIC, NORMOCEPHALIC - Eye Exam Eye Exam: EOMI - ENT Exam ENT Exam: Mucous Membranes Moist - Respiratory Exam Respiratory Exam: NORMAL BREATHING PATTERN. absent: Accessory Muscle Use, Respiratory Distress - Cardiovascular Exam Cardiovascular Exam: RRR - GI/Abdominal Exam GI & Abdominal Exam: Organomegaly (palpable cecum), Soft. absent: Distended, Firm, Guarding, Rebound, Rigid, Tenderness - Extremities Exam Extremities exam: Negative for: calf tenderness, pedal edema - Neurological Exam Neurological exam: Alert, Oriented x3 Results - Vital Signs Recent Vital Signs: Last Vital Signs Temp 101 F H 08/24/18 18:30 Pulse 98 H 08/24/18 18:30 Resp 18 08/24/18 22:26 BP 106/81 08/24/18 18:30 Pulse Ox 98 08/24/18 22:05 - Labs Result Diagrams: 08/25/18 07:30 08/25/18 07:30 Labs: Laboratory Results - last 24 hr 08/24/18 08/24/18 08/24/18 19:41 19:41 19:41 WBC 10.5 RBC 3.38 L Hgb 7.6 L Hct 26.5 L MCV 78.4 L MCH 22.5 L MCHC 28.7 L RDW 24.2 H Plt Count 287 Gran % 77.4 H Lymph % (Auto) 15.3 L Harvey % (Auto) 6.8 H Eos % (Auto) 0.3 L Baso % (Auto) 0.2 Gran # 8.12 H Lymph # (Auto) 1.6 Harvey # (Auto) 0.7 H Eos # (Auto) 0.0 Baso # (Auto) 0.02 PT 15.9 H INR 1.39 APTT 24.7 L Sodium 132 Potassium 4.6 Chloride 100 Carbon Dioxide 25 Anion Gap 12 BUN 12 Creatinine 0.7 L Est GFR ( Amer) > 60 Est GFR (Non-Af Amer) > 60 Random Glucose 109 Calcium 9.0 Total Bilirubin 0.4 AST 25 ALT 31 Alkaline Phosphatase 166 H Total Protein 5.9 Albumin 3.1 Globulin 2.8 Albumin/Globulin Ratio 1.1 08/25/18 08/25/18 08/25/18 07:30 07:30 07:30 WBC 8.1 D RBC 3.22 L Hgb 7.4 L Hct 25.1 L MCV 78.0 L MCH 23.0 L MCHC 29.5 L RDW 23.9 H Plt Count 235 Gran % 71.9 H Lymph % (Auto) 18.1 L Harvey % (Auto) 8.8 H Eos % (Auto) 1.1 L Baso % (Auto) 0.1 Gran # 5.78 Lymph # (Auto) 1.5 Harvey # (Auto) 0.7 H Eos # (Auto) 0.1 Baso # (Auto) 0.01 PT 16.2 H INR 1.40 APTT 27.5 Sodium 137 Potassium 4.6 Chloride 103 Carbon Dioxide 28 Anion Gap 11 BUN 16 Creatinine 0.7 L Est GFR ( Amer) > 60 Est GFR (Non-Af Amer) > 60 Random Glucose 97 Calcium 8.4 Total Bilirubin 0.2 AST 27 ALT 29 Alkaline Phosphatase 163 H Total Protein 5.3 L Albumin 2.8 L Globulin 2.5 Albumin/Globulin Ratio 1.1 Assessment & Plan - Assessment and Plan (Free Text) Assessment: 58M w. stage IV CRC -Colonoscopy reviewed, near obstructing cecal tumor, sessile polyp present at hepatic flexure, and rectum -CT scan reviewed -Will discuss w. pt surgical options, given his current status of Stage IV CRC -will need medical optimization in interim -d/w attending Coral PGY4
[2018-08-25] MEDS: Pantoprazole 40 mg EC Tab PO SCH (09:21)
--- NOTE | 2018-08-25 11:01 | CARD ---
APPROVED REPORT Date of service: 08/24/2018 EKG Measurement Heart [id number] NM 140P68 [id number] <Conclusion> Normal sinus rhythm Nonspecific T wave abnormality Abnormal ECG
--- NOTE | 2018-08-25 12:33 | CP.PCM.APN ---
Subjective - Date & Time of Evaluation Date of Evaluation: 08/25/18 Time of Evaluation: 11:30 - Subjective Subjective: pt seen and examined at bedside. Pt in NAD. pt states he is upset he has to wait until for surgical intervention. Review of Systems - Gastrointestinal Gastrointestinal: Abdominal Pain Objective - Vital Signs/Intake and Output Vital Signs (last 24 hours): Temp Pulse Resp BP Pulse Ox 99.9 F H 87 18 114/76 97 08/25/18 07:00 08/25/18 07:00 08/25/18 07:00 08/25/18 07:00 08/25/18 07:00 Intake and Output: 08/25/18 08/25/18 06:59 18:59 Intake Total 490 Balance 490 - Medications Medications: Current Medications Citalopram Hydrobromide (Celexa) 10 mg PO DAILY [facility] Last Admin: 08/25/18 09:21 Dose: 10 mg Clonazepam (Klonopin) 0.5 mg PO TID [facility]; Protocol Last Admin: 08/25/18 09:21 Dose: 0.5 mg Ferrous Sulfate (Feosol) 324 mg PO BID [facility] Last Admin: 08/25/18 09:22 Dose: 324 mg Folic Acid (Folic Acid) 1 mg PO MWF [facility] Pantoprazole Sodium (Protonix Ec Tab) 40 mg PO ACB [facility] Last Admin: 08/25/18 09:21 Dose: 40 mg Sucralfate (Carafate Tab) 1 gm PO 0600,1600 [facility] Last Admin: 08/25/18 05:53 Dose: Not Given - Labs Labs: 08/25/18 07:30 08/25/18 07:30 PT 16.2 SECONDS (9.4-12.5) H 08/25/18 07:30 INR 1.40 08/25/18 07:30 APTT 27.5 Seconds (25.1-36.5) 08/25/18 07:30 - Constitutional Appears: No Acute Distress - Respiratory Exam Respiratory Exam: Clear to Ausculation Bilateral, NORMAL BREATHING PATTERN - Cardiovascular Exam Cardiovascular Exam: +S1, +S2 - GI/Abdominal Exam GI & Abdominal Exam: Soft, Normal Bowel Sounds - Neurological Exam Neurological Exam: Alert, Awake - Skin Skin Exam: Dry, Intact Assessment and Plan - Assessment and Plan (Free Text) Plan: 58 yr old with pmh sig for stage I colon ca with mets to lung and liver, affective disorder, FELIX, presented to the ER for mgmt of diffuse intermittent abd pain secondary to cecal mass found s/p colonoscopy that surgical team is consulted for possible surgical intervention # cecal mass /colonic adenocarcinoma Surgical consultation for OR possible # stage IV lung ca with mets to lung and liver Oncology note rev'd #anemia monitor h/h ferous sulfate on board # affective disorder celexa and klonipin regimen Will continue to follow clinical course May Oliva, AUGUSTINA, MEDICARE NURSE BPCI/TIC - BPCIA/TIC Educated pt/family on BPCIA/CIR/Med to Bed Programs: N/A Flyers given, including CMS Beneficiary letter: N/A Pt/family verbalized understanding & agreed to program: N/A
[2018-08-25 13:41] LABS: TOTAL IRON BINDING CAPACITY 192 ug/dL (261-462)
[2018-08-25 14:14] LABS: % IRON SATURATION 5 % (20-55); IRON 10 ug/dL (45-180)
--- NOTE | 2018-08-25 15:50 | CP.PCM.PN ---
Subjective - Date & Time of Evaluation Date of Evaluation: 08/25/18 Time of Evaluation: 09:50 - Subjective Subjective: PGY-2 heme/onc progress note for Dr Spaulding No acute events noted overnight. Patient's main complaint was having to wait until 08/27 for any possible surgical intervention. He was also very angry that the surgeon wanted his psychiatrist to get involved. Patient tolerating liquid diet. Stated his pain is controlled. Objective - Vital Signs/Intake and Output Vital Signs (last 24 hours): Temp Pulse Resp BP Pulse Ox 99.9 F H 87 18 114/76 97 08/25/18 07:00 08/25/18 07:00 08/25/18 07:00 08/25/18 07:00 08/25/18 07:00 Intake and Output: 08/25/18 08/25/18 06:59 18:59 Intake Total 490 Balance 490 - Medications Medications: Current Medications Citalopram Hydrobromide (Celexa) 10 mg PO DAILY [facility] Last Admin: 08/25/18 09:21 Dose: 10 mg Clonazepam (Klonopin) 0.5 mg PO TID [facility]; Protocol Last Admin: 08/25/18 14:16 Dose: 0.5 mg Ferrous Sulfate (Feosol) 324 mg PO BID [facility] Last Admin: 08/25/18 09:22 Dose: 324 mg Folic Acid (Folic Acid) 1 mg PO MWF [facility] Pantoprazole Sodium (Protonix Ec Tab) 40 mg PO ACB [facility] Last Admin: 08/25/18 09:21 Dose: 40 mg Sucralfate (Carafate Tab) 1 gm PO 0600,1600 [facility] Last Admin: 08/25/18 05:53 Dose: Not Given - Labs Labs: 08/25/18 07:30 08/25/18 07:30 PT 16.2 SECONDS (9.4-12.5) H 08/25/18 07:30 INR 1.40 08/25/18 07:30 APTT 27.5 Seconds (25.1-36.5) 08/25/18 07:30 - Additional Findings Additional findings: - Constitutional Appears: Non-toxic, No Acute Distress - Head Exam Head Exam: ATRAUMATIC, NORMOCEPHALIC - Eye Exam Eye Exam: EOMI - ENT Exam ENT Exam: Mucous Membranes Moist - Respiratory Exam Respiratory Exam: NORMAL BREATHING PATTERN. absent: Accessory Muscle Use, Respiratory Distress - Cardiovascular Exam Cardiovascular Exam: RRR - GI/Abdominal Exam GI & Abdominal Exam: Organomegaly (palpable cecum), Soft. absent: Distended, Firm, Guarding, Rebound, Rigid, Tenderness - Extremities Exam Extremities exam: Negative for: calf tenderness, pedal edema - Neurological Exam Neurological exam: Alert, Oriented x3 Assessment and Plan - Assessment and Plan (Free Text) Plan: Mr Blackman is a 57 yo male with a PMHx of ITP, FELIX, iron deficiency anemia, affective disorder who was recently found to have a cecal mass s/p colonoscopy and biopsy now known to be colonic adenocarcinoma with metastatic disease to the liver and lung presents to the ED from Dr Spaulding's office for clearance for surgery: Adenocarcinoma of the Colon with Mets to Liver and Lung -Diagnosed 07/2018 -consult surgery, Dr Padilla * possible surgical intervention on 08/27/18 -type and screen -PT/PTT -CLD as per surgery Anemia -Hgb on admission: 8.2 -F/U iron studies -On previous admission in early Jul he received 4 units pRBCs -He comes to transfusion clinic for iron transfusions -continue home med ferrous sulfate 325mg po bid -continue home med folic acid 1mg po mwf Affective Disorder -continue home med klonopin 0.5mg po tid -continue home med celexa 10mg po qd GERD -continue home med sucralfate 1g po bid -continue home med omeprazole 20mg op qd PPX -SCDs -holding AC for now for potential surgical intervention -soft low fiber diet as recommended by GI on previous admission
[2018-08-26 08:32] LABS: BASO # 0.02 K/mm3 (0.0-2.0); BASO % 0.2 % (0.0-3.0); EOS # 0.1 (0.0-0.7); EOS % 0.6 % (1.5-5.0); GRAN # 9.97 (1.4-6.5); GRAN % 76.9 % (50.0-68.0); LYMPH # 1.8 (1.2-3.4); LYMPH % 13.6 % (22.0-35.0); MEAN CELL VOLUME 77.7 fl (80.0-105.0); MEAN CORPUSCULAR HEMOGLOBIN 22.3 pg (25.0-35.0); MEAN CORPUSCULAR HGB CONC 28.7 g/dl (31.0-37.0); MONO # 1.1 (0.1-0.6); MONO % 8.7 % (1.0-6.0); PLATELET COUNT 329 10^3/uL (120.0-450.0); RBC 3.59 10^6/uL (3.5-6.1); RED CELL DISTRIBUTION WIDTH 23.6 % (11.5-14.5)
[2018-08-26 08:43] LABS: ALB/GLOB RATIO 1.1 (1.1-1.8)
[2018-08-26 08:59] LABS: ALBUMIN 3.1 g/dL (3.0-4.8); ALT/SGPT 24 U/L (7-56); AST/SGOT 26 U/L (17-59); BLOOD UREA NITROGEN 13 mg/dL (7-21); CALCIUM 8.7 mg/dL (8.4-10.5); GFR NON-AFRICAN AMERICAN > 60
[2018-08-26] MEDS: Pantoprazole 40 mg EC Tab PO SCH (09:02)
[2018-08-26] MEDS ORDERED: Bisacodyl 5mg EC Tab PO ONE (11:05)
--- NOTE | 2018-08-26 11:11 | CP.PCM.PN ---
Subjective - Date & Time of Evaluation Date of Evaluation: 08/26/18 Time of Evaluation: 11:07 - Subjective Subjective: Surgery: Dr. Padilla Pt seen and examined. No acute events overnight. Will plan for OR tomorrow for colectomy. Objective - Vital Signs/Intake and Output Vital Signs (last 24 hours): Temp Pulse Resp BP Pulse Ox 98.9 F 98 H 18 129/88 98 08/26/18 06:00 08/26/18 06:00 08/26/18 06:00 08/26/18 06:00 08/26/18 06:00 Intake and Output: 08/26/18 08/26/18 06:59 18:59 Intake Total 240 Balance 240 - Medications Medications: Current Medications Acetaminophen (Tylenol 325mg Tab) 650 mg PO Q6H PRN PRN Reason: Fever >100.4 F Last Admin: 08/25/18 20:51 Dose: 650 mg Bisacodyl (Dulcolax) 5 mg PO ONCE ONE Stop: 08/26/18 11:06 Citalopram Hydrobromide (Celexa) 10 mg PO DAILY [facility] Last Admin: 08/26/18 08:59 Dose: 10 mg Clonazepam (Klonopin) 0.5 mg PO TID [facility]; Protocol Last Admin: 08/26/18 08:59 Dose: 0.5 mg Ferrous Sulfate (Feosol) 324 mg PO BID [facility] Last Admin: 08/26/18 08:59 Dose: 324 mg Folic Acid (Folic Acid) 1 mg PO MWF [facility] Last Admin: 08/26/18 08:59 Dose: 1 mg Magnesium Citrate (Citrate Of Mag) 300 ml PO ONCE ONE Stop: 08/26/18 15:01 Pantoprazole Sodium (Protonix Ec Tab) 40 mg PO ACB [facility] Last Admin: 08/26/18 09:02 Dose: 40 mg Sucralfate (Carafate Tab) 1 gm PO 0600,1600 [facility] Last Admin: 08/26/18 05:27 Dose: Not Given - Labs Labs: 08/26/18 08:26 08/26/18 08:26 PT 16.2 SECONDS (9.4-12.5) H 08/25/18 07:30 INR 1.40 08/25/18 07:30 APTT 27.5 Seconds (25.1-36.5) 08/25/18 07:30 - Constitutional Appears: Non-toxic, No Acute Distress - Head Exam Head Exam: ATRAUMATIC, NORMOCEPHALIC - Eye Exam Eye Exam: EOMI - ENT Exam ENT Exam: Mucous Membranes Moist - Neck Exam Neck Exam: Full ROM - Respiratory Exam Respiratory Exam: NORMAL BREATHING PATTERN. absent: Accessory Muscle Use, Respiratory Distress - GI/Abdominal Exam GI & Abdominal Exam: Soft, Organomegaly (Palpable R colon). absent: Distended, Firm, Guarding, Rigid, Tenderness, Rebound - Extremities Exam Extremities Exam: absent: Calf Tenderness, Pedal Edema - Neurological Exam Neurological Exam: Alert, Awake, Oriented x3 - Psychiatric Exam Psychiatric exam: Normal Affect, Normal Mood Assessment and Plan - Assessment and Plan (Free Text) Assessment: 58M w. stage IV colon CA w. transfusion dependent anemia -Palliative R colectomy planned for tomorrow -Bowel prep today -NPO at midnight -IVF -d/w attending Coral PGY4
[2018-08-26] MEDS: ERYthromycin Base 250 MG DR Cap PO SCH ×3 (13:01→23:02)
[2018-08-26] MEDS: Sodium Chloride 0.9% 1,000 ML IV SCH (13:04)
--- NOTE | 2018-08-26 14:51 | CARD ---
APPROVED REPORT Date of service: 08/26/2018 EKG Measurement Heart [id number] VT 134P69 [id number] <Conclusion> Normal sinus rhythm Nonspecific T wave abnormality Abnormal ECG
[2018-08-26] MEDS ORDERED: Magnesium Citrate Oral SOL (300 ml) PO ONE (15:00)
[2018-08-27 07:17] LABS: BASO # 0.01 K/mm3 (0.0-2.0); BASO % 0.1 % (0.0-3.0); EOS # 0.1 (0.0-0.7); EOS % 0.8 % (1.5-5.0); GRAN % 81.2 % (50.0-68.0); HEMOGLOBIN 7.2 g/dL (14.0-18.0); LYMPH % 11.8 % (22.0-35.0); MEAN CELL VOLUME 77.3 fl (80.0-105.0); MEAN CORPUSCULAR HEMOGLOBIN 22.4 pg (25.0-35.0); MONO # 0.5 (0.1-0.6); MONO % 6.1 % (1.0-6.0); PLATELET COUNT 231 10^3/uL (120.0-450.0); RBC 3.21 10^6/uL (3.5-6.1); RED CELL DISTRIBUTION WIDTH 23.2 % (11.5-14.5); WHITE BLOOD COUNT 8.7 10^3/uL (4.5-11.0)
[2018-08-27 07:34] LABS: ALBUMIN 2.7 g/dL (3.0-4.8); ALT/SGPT 23 U/L (7-56); AST/SGOT 23 U/L (17-59); BLOOD UREA NITROGEN 11 mg/dL (7-21); CALCIUM 8.1 mg/dL (8.4-10.5); GFR NON-AFRICAN AMERICAN > 60
--- NOTE | 2018-08-27 09:35 | CP.PCM.PN ---
Subjective - Date & Time of Evaluation Date of Evaluation: 08/27/18 Time of Evaluation: 09:33 - Subjective Subjective: PGY-2 heme/onc progress note for Dr Luis Spaulding No acute events noted overnight. Patient anxious - adamantly refuses blood transfusion. Denied pain. Objective - Vital Signs/Intake and Output Vital Signs (last 24 hours): Temp Pulse Resp BP Pulse Ox 98 F 83 20 116/78 97 08/27/18 06:00 08/27/18 06:00 08/27/18 06:00 08/27/18 06:00 08/27/18 06:00 - Medications Medications: Current Medications Acetaminophen (Tylenol 325mg Tab) 650 mg PO Q6H PRN PRN Reason: Fever >100.4 F Last Admin: 08/26/18 20:18 Dose: 650 mg Citalopram Hydrobromide (Celexa) 10 mg PO DAILY [facility] Last Admin: 08/26/18 08:59 Dose: 10 mg Clonazepam (Klonopin) 0.5 mg PO TID [facility]; Protocol Last Admin: 08/26/18 17:01 Dose: 0.5 mg Ferrous Sulfate (Feosol) 324 mg PO BID [facility] Last Admin: 08/26/18 17:01 Dose: 324 mg Folic Acid (Folic Acid) 1 mg PO MWF [facility] Last Admin: 08/26/18 08:59 Dose: 1 mg Sodium Chloride (Sodium Chloride 0.9%) 1,000 mls @ 105 mls/hr IV .Q9H32M [facility] Last Admin: 08/26/18 13:04 Dose: 105 mls/hr Neomycin Sulfate (Neomycin Tab) 1,000 mg PO 1300,1400,2300 [facility] Stop: 08/27/18 13:01 Last Admin: 08/26/18 23:01 Dose: 1,000 mg Pantoprazole Sodium (Protonix Ec Tab) 40 mg PO ACB [facility] Last Admin: 08/26/18 09:02 Dose: 40 mg Sucralfate (Carafate Tab) 1 gm PO 0600,1600 [facility] Last Admin: 08/26/18 17:01 Dose: 1 gm - Labs Labs: 08/27/18 07:00 08/27/18 07:00 PT 16.2 SECONDS (9.4-12.5) H 08/25/18 07:30 INR 1.40 08/25/18 07:30 APTT 27.5 Seconds (25.1-36.5) 08/25/18 07:30 - Additional Findings Additional findings: - Constitutional Appears: Non-toxic, No Acute Distress - Head Exam Head Exam: ATRAUMATIC, NORMOCEPHALIC - Eye Exam Eye Exam: EOMI - ENT Exam ENT Exam: Mucous Membranes Moist - Respiratory Exam Respiratory Exam: NORMAL BREATHING PATTERN. absent: Accessory Muscle Use, Respiratory Distress - Cardiovascular Exam Cardiovascular Exam: RRR - GI/Abdominal Exam GI & Abdominal Exam: Organomegaly (palpable cecum), Soft. absent: Distended, Firm, Guarding, Rebound, Rigid, Tenderness - Extremities Exam Extremities exam: Negative for: calf tenderness, pedal edema - Neurological Exam Neurological exam: Alert, Oriented x3 Assessment and Plan - Assessment and Plan (Free Text) Plan: Mr Blackman is a 57 yo male with a PMHx of ITP, FELIX, iron deficiency anemia, affective disorder who was recently found to have a cecal mass s/p colonoscopy and biopsy now known to be colonic adenocarcinoma with metastatic disease to the liver and lung presents to the ED from Dr Spaulding's office for clearance for surgery: Adenocarcinoma of the Colon with Mets to Liver and Lung -Diagnosed 07/2018 -consult surgery, Dr Padilla * Palliative R colectomy planned for 08/27/18 -type and screen -PT/PTT -CLD as per surgery Anemia -Hgb on admission: 8.2 -F/U iron studies -On previous admission in early Jul he received 4 units pRBCs -He comes to transfusion clinic for iron transfusions -continue home med ferrous sulfate 325mg po bid -continue home med folic acid 1mg po mwf Affective Disorder -continue home med klonopin 0.5mg po tid -continue home med celexa 10mg po qd GERD -continue home med sucralfate 1g po bid -continue home med omeprazole 20mg op qd PPX -SCDs -holding AC for now for potential surgical intervention -soft low fiber diet as recommended by GI on previous admission
[2018-08-27] MEDS ORDERED: metroNIDAZOLE IV 500 mg/100 ml 500 MG/100 ML BAG ONE (11:21)
[2018-08-27] MEDS ORDERED: Bupivacaine 0.5% 50 ML IJ ONE (11:21)
[2018-08-27] MEDS ORDERED: Midazolam 2 MG/2 ML VIAL ONE (11:24)
[2018-08-27] MEDS ORDERED: Propofol 10 mg/ml Inj (20 ML) ONE (11:24)
[2018-08-27] MEDS ORDERED: Rocuronium 10 mg/ml (5 ml) ONE ×2 (11:25→13:32)
[2018-08-27] MEDS: Pantoprazole 40 mg EC Tab PO SCH (11:49)
[2018-08-27] MEDS ORDERED: Phenylephrine 10 mg/ml Inj ONE (12:48)
[2018-08-27] MEDS ORDERED: Sevoflurane - Inhalation Anesthetic Liq (250 ml) ONE (13:04)
[2018-08-27] MEDS ORDERED: Lactated Ringer's 1,000 ML IV SCH (13:45)
[2018-08-27] MEDS ORDERED: Bupivacaine Liposomal Inj 20 ml INJ ONE (13:47)
[2018-08-27] MEDS ORDERED: Morphine 4 mg/ml ISec ONE (13:51)
[2018-08-27] MEDS ORDERED: Glycopyrrolate 0.2 mg/ml (2ml vial) ONE (13:51)
[2018-08-27] MEDS ORDERED: Neostigmine Methylsulfate 3mg/3ml Syringe IV ONE (14:00)
--- NOTE | 2018-08-27 14:13 | PCM.SURG1 ---
Surgeon's Initial Post Op Note - Surgeon's Notes Surgeon: Dr. Crisostomo Grief Counsellor: Erwin Carter PGY3, Coral PGY4 Type of Anesthesia: General Endo, Local Anesthesia Administered By: Shanice Pre-Operative Diagnosis: Cecal mass Operative Findings: large cecal mass [id number] Post-Operative Diagnosis: Same Operation Performed: Laparoscopic, hand assisted R hemicolectomy Specimen/Specimens Removed: R colon Estimated Blood Loss: EBL {In ML}: 100 Blood Products Given: PRBC Drains Used: No Drains Post-Op Condition: Good Date of Surgery/Procedure: 08/27/18 Time of Surgery/Procedure: 14:13
[2018-08-27] MEDS ORDERED: Clindamycin 600mg/50ml D5W 600 MG/50 ML VIAL IVPB SCH (14:15)
[2018-08-27] MEDS ORDERED: HYDROmorphone 1 mg/ml PCA 30 ML IV PRN (14:24)
[2018-08-27] MEDS ORDERED: Naloxone 0.4 mg/ml Inj (Adult) ONE (14:40)
[2018-08-27] MEDS: HYDROmorphone 0.5 mg/0.5 ml ISec IVP PRN ×4 (15:14→16:22)
[2018-08-27] MEDS ORDERED: HYDROmorphone 0.5 mg/0.5 ml ISec ONE ×4 (15:18→16:26)
[2018-08-27] MEDS ORDERED: HYDROmorphone 0.2 mg/ml (30ml) 30 ML IV ONE (16:19)
[2018-08-27] MEDS: HYDROmorphone 0.2 mg/ml (30ml) 30 ML IV PRN (16:43)
[2018-08-27] MEDS: Clindamycin 600mg/50ml D5W 600 MG/50 ML VIAL IVPB SCH (20:04)
[2018-08-27] MEDS: metroNIDAZOLE IV 500 mg/100 ml 500 MG/100 ML BAG IVPB SCH (22:38)
[2018-08-27] MEDS ORDERED: Saliva Substitute 44.3 ML PO PRN (23:10)
[2018-08-28] MEDS: Clindamycin 600mg/50ml D5W 600 MG/50 ML VIAL IVPB SCH (04:49)
[2018-08-28] MEDS: metroNIDAZOLE IV 500 mg/100 ml 500 MG/100 ML BAG IVPB SCH ×3 (05:32→21:20)
[2018-08-28 07:28] LABS: BASO # 0.01 K/mm3 (0.0-2.0); BASO % 0.1 % (0.0-3.0); EOS % 0.3 % (1.5-5.0); GRAN # 10.15 (1.4-6.5); LYMPH # 1.1 (1.2-3.4); LYMPH % 9.2 % (22.0-35.0); MEAN CELL VOLUME 80.1 fl (80.0-105.0); MEAN CORPUSCULAR HEMOGLOBIN 22.9 pg (25.0-35.0); MEAN CORPUSCULAR HGB CONC 28.5 g/dl (31.0-37.0); MONO # 0.5 (0.1-0.6); MONO % 4.4 % (1.0-6.0); PLATELET COUNT 287 10^3/uL (120.0-450.0); RBC 4.07 10^6/uL (3.5-6.1); RED CELL DISTRIBUTION WIDTH 21.4 % (11.5-14.5); WHITE BLOOD COUNT 11.8 10^3/uL (4.5-11.0)
[2018-08-28 07:30] LABS: HEMOGLOBIN 9.3 g/dL (14.0-18.0)
[2018-08-28] MEDS: Pantoprazole 40 mg EC Tab PO SCH (07:30)
[2018-08-28 07:40] LABS: ALB/GLOB RATIO 1.1 (1.1-1.8); ALT/SGPT 21 U/L (7-56); AST/SGOT 23 U/L (17-59); BLOOD UREA NITROGEN 11 mg/dL (7-21); CALCIUM 8.5 mg/dL (8.4-10.5); GFR NON-AFRICAN AMERICAN > 60
--- NOTE | 2018-08-28 08:27 | CP.PCM.PN ---
Subjective - Date & Time of Evaluation Date of Evaluation: 08/28/18 Time of Evaluation: 08:23 - Subjective Subjective: Resident Progress Note for Surgery: Dr. Padilla Patient examined at bedside. No acute events overnight. Patient is s/p right hemicolectomy POD#1 with no complications. Patient admits to abdominal pain. Has not passed flatus or bowel movement. Objective - Vital Signs/Intake and Output Vital Signs (last 24 hours): Temp Pulse Resp BP Pulse Ox 97.7 F 109 H 20 129/88 99 08/28/18 06:00 08/28/18 06:00 08/28/18 06:00 08/28/18 06:00 08/28/18 06:00 Intake and Output: 08/28/18 08/28/18 06:59 18:59 Intake Total 180 Balance 180 - Medications Medications: Current Medications Acetaminophen (Tylenol 325mg Tab) 650 mg PO Q6H PRN PRN Reason: Fever >100.4 F Last Admin: 08/26/18 20:18 Dose: 650 mg Citalopram Hydrobromide (Celexa) 10 mg PO DAILY [facility] Last Admin: 08/27/18 11:48 Dose: Not Given Clonazepam (Klonopin) 0.5 mg PO TID [facility]; Protocol Last Admin: 08/27/18 18:24 Dose: Not Given Ferrous Sulfate (Feosol) 324 mg PO BID [facility] Last Admin: 08/27/18 18:23 Dose: Not Given Folic Acid (Folic Acid) 1 mg PO MWF [facility] Last Admin: 08/26/18 08:59 Dose: 1 mg Hydromorphone HCl (Dilaudid) 0.5 mg IVP Q4H PRN PRN Reason: Pain, moderate (4-7) Last Admin: 08/27/18 16:22 Dose: 0.5 mg Sodium Chloride (Sodium Chloride 0.9%) 1,000 mls @ 105 mls/hr IV .Q9H32M [facility] Last Admin: 08/26/18 13:04 Dose: 105 mls/hr Metronidazole (Flagyl) 500 mg in 100 mls @ 100 mls/hr IVPB Q8 [facility]; Protocol Last Admin: 08/28/18 05:32 Dose: 100 mls/hr Hydromorphone HCl (Dilaudid 0.2 Mg/Ml [employer]) 30 mls @ 0 mls/hr IV PRN PRN; Protocol PRN Reason: POWER GENERATION TECHNICIAN PER MD ORDER Last Admin: 08/27/18 16:43 Dose: 0.001 mls/hr Neomycin Sulfate (Neomycin Tab) 1,000 mg PO 1300,1400,2300 [facility] Last Admin: 08/26/18 23:01 Dose: 1,000 mg Ondansetron HCl (Zofran Inj) 4 mg IVP ONCE PRN PRN Reason: Nausea/Vomiting Ondansetron HCl (Zofran Inj) 4 mg IVP Q4H PRN PRN Reason: Nausea/Vomiting Pantoprazole Sodium (Protonix Ec Tab) 40 mg PO ACB [facility] Last Admin: 08/27/18 11:49 Dose: Not Given Saliva Substitute (Saliva Substitute) 0 ml PO Q2H PRN PRN Reason: Dry mouth Sucralfate (Carafate Tab) 1 gm PO 0600,1600 [facility] Last Admin: 08/27/18 18:24 Dose: Not Given - Labs Labs: 08/28/18 07:00 08/28/18 07:00 PT 16.2 SECONDS (9.4-12.5) H 08/25/18 07:30 INR 1.40 08/25/18 07:30 APTT 27.5 Seconds (25.1-36.5) 08/25/18 07:30 - Additional Findings Additional findings: - Constitutional Appears: Non-toxic, No Acute Distress - Head Exam Head Exam: ATRAUMATIC, NORMOCEPHALIC - Eye Exam Eye Exam: EOMI - ENT Exam ENT Exam: Mucous Membranes Moist - Neck Exam Neck Exam: Full ROM - Respiratory Exam Respiratory Exam: NORMAL BREATHING PATTERN. absent: Accessory Muscle Use, Respiratory Distress - GI/Abdominal Exam GI & Abdominal Exam: Soft, Tenderness, Gaurding. absent: Distended, Firm, Rigid Additional comments: midline surgical dressing C/D/I - Extremities Exam Extremities Exam: absent: Calf Tenderness, Pedal Edema - Neurological Exam Neurological Exam: Alert, Awake, Oriented x3 Assessment and Plan - Assessment and Plan (Free Text) Assessment: 58 year old male with stage IV colon cancer with transfusion dependent anemia, now s/p right hemicolectomy POD#1. Plan: - s/p right hemicolectomy - 1 unit pRBCs given - advance diet as tolerated - Flagyl 500 IV Q8H, Neomycin - IVF - dilaudid for pain management - followup pathology results - further recs per Dr. Randy Vargas PGY-1
--- NOTE | 2018-08-28 09:16 | CP.PCM.PN ---
Subjective - Date & Time of Evaluation Date of Evaluation: 08/28/18 Time of Evaluation: 09:11 - Subjective Subjective: PGY-2 heme/onc progress note No acute events noted overnight. Patient stated his pain was moderate and the pain meds were helping control it. Denied pain. No BMs yet. + gas. Objective - Vital Signs/Intake and Output Vital Signs (last 24 hours): Temp Pulse Resp BP Pulse Ox 97.7 F 109 H 20 129/88 99 08/28/18 06:00 08/28/18 06:00 08/28/18 06:00 08/28/18 06:00 08/28/18 06:00 Intake and Output: 08/28/18 08/28/18 06:59 18:59 Intake Total 180 Balance 180 - Medications Medications: Current Medications Acetaminophen (Tylenol 325mg Tab) 650 mg PO Q6H PRN PRN Reason: Fever >100.4 F Last Admin: 08/26/18 20:18 Dose: 650 mg Citalopram Hydrobromide (Celexa) 10 mg PO DAILY [facility] Last Admin: 08/27/18 11:48 Dose: Not Given Clonazepam (Klonopin) 0.5 mg PO TID [facility]; Protocol Last Admin: 08/27/18 18:24 Dose: Not Given Ferrous Sulfate (Feosol) 324 mg PO BID [facility] Last Admin: 08/27/18 18:23 Dose: Not Given Folic Acid (Folic Acid) 1 mg PO MWF [facility] Last Admin: 08/26/18 08:59 Dose: 1 mg Hydromorphone HCl (Dilaudid) 0.5 mg IVP Q4H PRN PRN Reason: Pain, moderate (4-7) Last Admin: 08/27/18 16:22 Dose: 0.5 mg Sodium Chloride (Sodium Chloride 0.9%) 1,000 mls @ 105 mls/hr IV .Q9H32M [facility] Last Admin: 08/26/18 13:04 Dose: 105 mls/hr Metronidazole (Flagyl) 500 mg in 100 mls @ 100 mls/hr IVPB Q8 [facility]; Protocol Last Admin: 08/28/18 05:32 Dose: 100 mls/hr Hydromorphone HCl (Dilaudid 0.2 Mg/Ml Quarry Worker) 30 mls @ 0 mls/hr IV PRN PRN; Protocol PRN Reason: RELIGIOUS ACTIVITIES DIRECTOR PER MD ORDER Last Admin: 08/27/18 16:43 Dose: 0.001 mls/hr Neomycin Sulfate (Neomycin Tab) 1,000 mg PO 1300,1400,2300 [facility] Last Admin: 08/26/18 23:01 Dose: 1,000 mg Ondansetron HCl (Zofran Inj) 4 mg IVP ONCE PRN PRN Reason: Nausea/Vomiting Ondansetron HCl (Zofran Inj) 4 mg IVP Q4H PRN PRN Reason: Nausea/Vomiting Pantoprazole Sodium (Protonix Ec Tab) 40 mg PO ACB [facility] Last Admin: 08/27/18 11:49 Dose: Not Given Saliva Substitute (Saliva Substitute) 0 ml PO Q2H PRN PRN Reason: Dry mouth Sucralfate (Carafate Tab) 1 gm PO 0600,1600 [facility] Last Admin: 08/27/18 18:24 Dose: Not Given - Labs Labs: 08/28/18 07:00 08/28/18 07:00 PT 16.2 SECONDS (9.4-12.5) H 08/25/18 07:30 INR 1.40 08/25/18 07:30 APTT 27.5 Seconds (25.1-36.5) 08/25/18 07:30 - Additional Findings Additional findings: - Constitutional Appears: Non-toxic, No Acute Distress - Head Exam Head Exam: ATRAUMATIC, NORMOCEPHALIC - Eye Exam Eye Exam: EOMI - ENT Exam ENT Exam: Mucous Membranes Moist - Respiratory Exam Respiratory Exam: NORMAL BREATHING PATTERN. absent: Accessory Muscle Use, Respiratory Distress - Cardiovascular Exam Cardiovascular Exam: RRR - GI/Abdominal Exam GI & Abdominal Exam: Organomegaly (palpable cecum), Soft. absent: Distended, Firm, Guarding, Rebound, Rigid, Tenderness - Extremities Exam Extremities exam: Negative for: calf tenderness, pedal edema - Neurological Exam Neurological exam: Alert, Oriented x3 Assessment and Plan - Assessment and Plan (Free Text) Plan: Mr Blackman is a 57 yo male with a PMHx of ITP, FELIX, iron deficiency anemia, affective disorder who was recently found to have a cecal mass s/p colonoscopy and biopsy now known to be colonic adenocarcinoma with metastatic disease to the liver and lung presents to the ED from Dr Spaulding's office for clearance for surgery: Adenocarcinoma of the Colon with Mets to Liver and Lung -Diagnosed 07/2018 -consult surgery, Dr Padilla * s/p Laparoscopic, hand assisted R hemicolectomy 08/27/18 w/ no complications * f/u pathology results -on flagyl and neomycin for empiric coverage -dilaudid for pain control Anemia -Hgb on admission: 8.2 -iron studies -> iron 10, tibc 192, %sat 5, ferritin 111 -transfused 1u pRBC during operation -On previous admission in early Jul he received 4 units pRBCs -He comes to transfusion clinic for iron transfusions -continue home med ferrous sulfate 325mg po bid -continue home med folic acid 1mg po mwf Affective Disorder -continue home med klonopin 0.5mg po tid -continue home med celexa 10mg po qd GERD -continue home med sucralfate 1g po bid -continue home med omeprazole 20mg op qd PPX -SCDs -holding AC due to recent surgery -soft low fiber diet as recommended by GI on previous admission
[2018-08-28] MEDS: Sodium Chloride 0.9% 1,000 ML IV SCH (10:03)
--- NOTE | 2018-08-28 14:01 | CP.PCM.APN ---
Subjective - Date & Time of Evaluation Date of Evaluation: 08/28/18 Time of Evaluation: 11:00 - Subjective Subjective: pt seen and examined at bedside pt in regualr clothing states he does not want to wear gown, does not want to be seen by p.t as he has been up and ambulating by himself with no help pt reports incisional pain - Review of Systems - Gastrointestinal Gastrointestinal: Abdominal Pain Additional comments: surgical site pain Objective - Vital Signs/Intake and Output Vital Signs (last 24 hours): Temp Pulse Resp BP Pulse Ox 97.7 F 109 H 20 129/88 99 08/28/18 06:00 08/28/18 06:00 08/28/18 06:00 08/28/18 06:00 08/28/18 06:00 Intake and Output: 08/28/18 08/28/18 06:59 18:59 Intake Total 180 Balance 180 - Medications Medications: Current Medications Acetaminophen (Tylenol 325mg Tab) 650 mg PO Q6H PRN PRN Reason: Fever >100.4 F Last Admin: 08/26/18 20:18 Dose: 650 mg Citalopram Hydrobromide (Celexa) 10 mg PO DAILY [facility] Last Admin: 08/28/18 10:02 Dose: 10 mg Clonazepam (Klonopin) 0.5 mg PO TID [facility]; Protocol Last Admin: 08/28/18 13:12 Dose: 0.5 mg Ferrous Sulfate (Feosol) 324 mg PO BID [facility] Last Admin: 08/28/18 10:02 Dose: 324 mg Folic Acid (Folic Acid) 1 mg PO MWF [facility] Last Admin: 08/28/18 10:02 Dose: 1 mg Hydromorphone HCl (Dilaudid) 0.5 mg IVP Q4H PRN PRN Reason: Pain, moderate (4-7) Last Admin: 08/27/18 16:22 Dose: 0.5 mg Sodium Chloride (Sodium Chloride 0.9%) 1,000 mls @ 105 mls/hr IV .Q9H32M [facility] Last Admin: 08/28/18 10:03 Dose: 105 mls/hr Metronidazole (Flagyl) 500 mg in 100 mls @ 100 mls/hr IVPB Q8 [facility]; Protocol Last Admin: 08/28/18 13:11 Dose: 100 mls/hr Hydromorphone HCl (Dilaudid 0.2 Mg/Ml Broadcast Director Operations) 30 mls @ 0 mls/hr IV PRN PRN; Protocol PRN Reason: TIRE FABRIC INSPECTOR PER MD ORDER Last Admin: 08/27/18 16:43 Dose: 0.001 mls/hr Neomycin Sulfate (Neomycin Tab) 1,000 mg PO 1300,1400,2300 [facility] Last Admin: 08/26/18 23:01 Dose: 1,000 mg Ondansetron HCl (Zofran Inj) 4 mg IVP ONCE PRN PRN Reason: Nausea/Vomiting Ondansetron HCl (Zofran Inj) 4 mg IVP Q4H PRN PRN Reason: Nausea/Vomiting Pantoprazole Sodium (Protonix Ec Tab) 40 mg PO ACB [facility] Last Admin: 08/27/18 11:49 Dose: Not Given Saliva Substitute (Saliva Substitute) 0 ml PO Q2H PRN PRN Reason: Dry mouth Sucralfate (Carafate Tab) 1 gm PO 0600,1600 [facility] Last Admin: 08/27/18 18:24 Dose: Not Given - Labs Labs: 08/28/18 07:00 08/28/18 07:00 PT 16.2 SECONDS (9.4-12.5) H 08/25/18 07:30 INR 1.40 08/25/18 07:30 APTT 27.5 Seconds (25.1-36.5) 08/25/18 07:30 - Constitutional Appears: No Acute Distress - Eye Exam Eye Exam: Normal appearance, PERRL - ENT Exam ENT Exam: Normal Exam - Respiratory Exam Respiratory Exam: Clear to Ausculation Bilateral, NORMAL BREATHING PATTERN - Cardiovascular Exam Cardiovascular Exam: +S1, +S2 - GI/Abdominal Exam Additional comments: dsg intact - Neurological Exam Neurological Exam: Alert, Awake, Oriented x3 Assessment and Plan - Assessment and Plan (Free Text) Plan: 58 yr old with pmh sig for stage IV colon ca with mets to lung and liver, affective disorder, FELIX, presented to the ER for mgmt of diffuse intermittent abd pain secondary to cecal mass found s/p colonoscopy that surgical team is consulted for possible surgical intervention #post op dy #1 for right hemicolectomy of cecal mass /colonic adenocarcinoma # stage IV lung ca with mets to lung and liver Oncology note rev'd #anemia s/p blood transfusion intraop h/h stable # affective disorder celexa and klonipin regimen Will continue to follow clinical course pt independent and ambulatory, anticipate dc home once medically stable
[2018-08-28] MEDS: HYDROmorphone 0.2 mg/ml (30ml) 30 ML IV PRN (21:35)
--- NOTE | 2018-08-28 21:57 | OP ---
PROCEDURE DATE: 08/27/2018 PREOPERATIVE DIAGNOSIS: Stage 4 colon cancer. POSTOPERATIVE DIAGNOSIS: Stage 4 colon cancer. PROCEDURE: Laparoscopic hand-assisted right hemicolectomy converted to open. SURGEON: Clifford Padilla MD RIG MANAGER: Kyle Moncada DO, PGY-4, and Eriwn Carter DO, PGY-3 ANESTHESIOLOGIST: Violeta Prasad MD ANESTHESIA: General. ESTIMATED BLOOD LOSS: 100 mL. SPECIMEN: Right colon. INDICATIONS: This is a 58-year-old gentleman with history of stage 4 colon cancer with mets to the liver and lungs. The primary tumor is in the cecum. The near-obstructing tumor resulting in transfusion dependent anemia for which right hemicolectomy was indicated. It was described to the patient on multiple occasions that this operation will be palliative in nature and that the metastatic lesions in the liver and lungs would solely present after the operation. The patient understood this, and he elected to go forward with the procedure. Risks and benefits were discussed with the patient and informed consent was obtained. DESCRIPTION OF THE PROCEDURE: The patient was taken to the operating room and placed on the operating table in the supine position. The patient underwent general anesthesia with all appropriate monitoring devices in place. SCDs were applied and Mcdowell was placed under sterile condition. Preoperative antibiotics were given and the abdomen was prepped and draped in the usual sterile fashion. Next, a time-out was done verifying correct patient, procedure, site, position, and laterality. Next, a vertical midline incision was made over the umbilicus that was large enough to facilitate a hand-assisted laparoscopic port. The Incision was deepened to the subcutaneous tissue and the linea alba was identified and incised and the peritoneal cavity was entered. Next, a 5-mm port was introduced into the hand-assisted GelPort and pneumoperitoneum was achieved. The patient tolerated pneumoperitoneum without any issues and the laparoscope was entered into the abdomen. There was no obvious injury seen from initial entry. The abdomen was inspected and the large tumor was identified in the cecum. Metastatic lesions were also noted to be present on the liver. Next, under direct visualization, a 5-mm port was placed in the left upper quadrant and again a 5-mm port was placed under direct visualization in the subxiphoid area. Next, a camera was placed into the left upper quadrant and the hand was placed into the hand-assist port and the greater omentum was retracted superiorly. The avascular plane of the gastrocolic ligament was identified. This was taken down with the harmonic device, and dissection was continued laterally and the peritoneal attachments to the hepatic flexure were taken down. At this point, debulking of the tumor made it difficult to identify and take down the line of Toldt. So, the procedure was converted to open at this point. The colon was mobilized medially and the line of Toldt was carefully taken down under direct visualization. Next, a GEE blue load was used to divide the proximal third of the transverse colon as well as the terminal ileum approximately 10 cm proximal to the ileocecal valve. Mesentery was then divided with a harmonic scalpel. The ileocolic, right colic and right branch of the middle colic artery were double ligated with 0 Vicryl sutures and transected. At this point, specimen was removed from the abdominal cavity and placed on the Matos stand. Hemostasis was then checked in the operative field and the two ends of the bowel were checked and found to be viable with excellent blood supply. Next, the proximal and distal segments of the bowel were brought into the apposition and felt to lie comfortably next to each other. Three stay sutures of 3-0 silk were then placed to proximate the antimesenteric borders of the bowel segments one proximally, one in the middle, one distally. Next, enterotomies made on the antimesenteric corner of the staple line of the ileum and the transverse colon and a GEE stapler blue load was inserted in side. The enterotomies were then closed with the GEE 60. Anastomosis was checked and found to be intact and widely patent. Mesenteric defect was closed with interrupted 3-0 Vicryl sutures. The abdominal cavity was then copiously irrigated and hemostasis was again checked. Next, the fascia was then closed with running #1 PDS suture. The fascia was closed, the incision was again irrigated and skin was closed with iza. The surgical site was then infiltrated with Exparel anesthetic. At this point, the procedure was complete. The patient tolerated the procedure well and was taken to the PACU in stable condition. Kyle Moncada, DO Clifford Padilla MD
[2018-08-29] MEDS: Sodium Chloride 0.9% 1,000 ML IV SCH (06:50)
[2018-08-29 07:52] LABS: BASO # 0.01 K/mm3 (0.0-2.0); BASO % 0.1 % (0.0-3.0); EOS # 0.1 (0.0-0.7); EOS % 1.3 % (1.5-5.0); GRAN # 6.08 (1.4-6.5); GRAN % 77.8 % (50.0-68.0); HEMOGLOBIN 7.6 g/dL (14.0-18.0); LYMPH # 1.2 (1.2-3.4); LYMPH % 14.9 % (22.0-35.0); MEAN CELL VOLUME 79.2 fl (80.0-105.0); MONO # 0.5 (0.1-0.6); MONO % 5.9 % (1.0-6.0); PLATELET COUNT 218 10^3/uL (120.0-450.0); RBC 3.31 10^6/uL (3.5-6.1); RED CELL DISTRIBUTION WIDTH 21.4 % (11.5-14.5); WHITE BLOOD COUNT 7.8 10^3/uL (4.5-11.0)
--- NOTE | 2018-08-29 07:59 | CP.PCM.PN ---
Subjective - Date & Time of Evaluation Date of Evaluation: 08/29/18 Time of Evaluation: 07:57 - Subjective Subjective: Surgery Progress note- Dr. Padilla patient seen and examined at bedside. resting comfortably this AM and resting. Denies nausea, vomiting. + OOB and ambulating. Denies flatus or BM at this time. Objective - Vital Signs/Intake and Output Vital Signs (last 24 hours): Temp Pulse Resp BP Pulse Ox 97.7 F 109 H 20 129/88 99 08/28/18 06:00 08/28/18 06:00 08/28/18 06:00 08/28/18 06:00 08/28/18 06:00 Intake and Output: 08/29/18 08/29/18 06:59 18:59 Intake Total 30 Balance 30 - Medications Medications: Current Medications Acetaminophen (Tylenol 325mg Tab) 650 mg PO Q6H PRN PRN Reason: Fever >100.4 F Last Admin: 08/26/18 20:18 Dose: 650 mg Citalopram Hydrobromide (Celexa) 10 mg PO DAILY [facility] Last Admin: 08/28/18 10:02 Dose: 10 mg Clonazepam (Klonopin) 0.5 mg PO TID [facility]; Protocol Last Admin: 08/28/18 17:07 Dose: 0.5 mg Ferrous Sulfate (Feosol) 324 mg PO BID [facility] Last Admin: 08/28/18 17:08 Dose: 324 mg Folic Acid (Folic Acid) 1 mg PO MWF [facility] Last Admin: 08/28/18 10:02 Dose: 1 mg Hydromorphone HCl (Dilaudid) 0.5 mg IVP Q4H PRN PRN Reason: Pain, moderate (4-7) Last Admin: 08/27/18 16:22 Dose: 0.5 mg Sodium Chloride (Sodium Chloride 0.9%) 1,000 mls @ 105 mls/hr IV .Q9H32M [facility] Last Admin: 08/29/18 06:50 Dose: 105 mls/hr Hydromorphone HCl (Dilaudid 0.2 Mg/Ml Department Of Sociology Chair) 30 mls @ 0 mls/hr IV PRN PRN; Protocol PRN Reason: SCIENCE LIAISON PER MD ORDER Last Admin: 08/28/18 21:35 Dose: 0.001 mls/hr Neomycin Sulfate (Neomycin Tab) 1,000 mg PO 1300,1400,2300 [facility] Last Admin: 08/26/18 23:01 Dose: 1,000 mg Ondansetron HCl (Zofran Inj) 4 mg IVP Q4H PRN PRN Reason: Nausea/Vomiting Pantoprazole Sodium (Protonix Ec Tab) 40 mg PO ACB [facility] Last Admin: 08/28/18 07:30 Dose: Not Given Saliva Substitute (Saliva Substitute) 0 ml PO Q2H PRN PRN Reason: Dry mouth Sucralfate (Carafate Tab) 1 gm PO 0600,1600 [facility] Last Admin: 08/29/18 06:50 Dose: 1 gm - Labs Labs: 08/29/18 07:00 08/28/18 07:00 PT 16.2 SECONDS (9.4-12.5) H 08/25/18 07:30 INR 1.40 08/25/18 07:30 APTT 27.5 Seconds (25.1-36.5) 08/25/18 07:30 - Constitutional Appears: Non-toxic, No Acute Distress - Eye Exam Eye Exam: EOMI. absent: Scleral icterus - ENT Exam ENT Exam: Mucous Membranes Moist - Respiratory Exam Respiratory Exam: NORMAL BREATHING PATTERN. absent: Accessory Muscle Use, Respiratory Distress - Cardiovascular Exam Cardiovascular Exam: REGULAR RHYTHM, +S1, +S2. absent: Bradycardia, Tachycardia - GI/Abdominal Exam GI & Abdominal Exam: Soft, Tenderness (mildly tender around incision). absent: Distended, Firm, Guarding, Rigid - Extremities Exam Extremities Exam: absent: Calf Tenderness - Neurological Exam Neurological Exam: Alert, Awake, Oriented x3 - Psychiatric Exam Psychiatric exam: Normal Affect - Skin Skin Exam: Intact, Warm Assessment and Plan - Assessment and Plan (Free Text) Assessment: 58M s/p R. Hemicolectomy for Colon Ca Plan: - diet as tolerated - monitor BM - pain control PRN - OOB and ambulate - further recsper Dr. Randy stoner pgy2
[2018-08-29 08:08] LABS: ALBUMIN 2.3 g/dL (3.0-4.8); ALT/SGPT 26 U/L (7-56); AST/SGOT 16 U/L (17-59); BLOOD UREA NITROGEN 6 mg/dL (7-21); CALCIUM 7.8 mg/dL (8.4-10.5); GFR NON-AFRICAN AMERICAN > 60
[2018-08-29] MEDS: Pantoprazole 40 mg EC Tab PO SCH (11:42)
[2018-08-29] MEDS ORDERED: Sodium Chloride 0.9% 1,000 ML IV SCH (15:09)
[2018-08-29] MEDS: Sucralfate 1 gm/10 ml Oral Susp UD PO SCH (15:50)
[2018-08-29] MEDS ORDERED: Potassium Chloride 20 mEq ER Tab PO ONE (16:08)
--- NOTE | 2018-08-29 20:16 | PN ---
DATE OF VISIT: 08/29/2018 This is [facility] visit on the medical floor. For Dr. Spaulding. SUBJECTIVE: The patient is a 58-year-old male with past history significant for iron-deficiency anemia with progressive weight loss with the patient also known to suffer from psychological issues, possible schizoaffective disorder, for which he was receiving present treatment for with known severe anemic indices, which the patient refused transfusions of blood, with recently diagnosed adenocarcinoma, moderately differentiated, of the ascending colon, 07/13/2018. The patient then relented allowing transfusions of packed red blood cells to be given for his severe anemia and now eventually relenting and being hospitalized for surgery due to an obstructive lesion in the colon after being convinced by friends and medical personnel including Dr. Spaulding and counselors of the need for surgical correction of his underlying disease process. On 06/15/2016, the patient did have a hemoglobin of 5.0; it was repeated with the hemoglobin eventually dropping to 4.6 on 07/12/2018, with paramedics sent to the patient's home as the patient lives on the 3rd floor with no doorbell and has no telephone. Police eventually were summoned with the patient then relenting and allowing blood transfusion to be performed at that time. Today, the patient has received a total of 7 units of packed cells including one during surgical procedure 2 day's prior and now allowing transfusion as his hemoglobin is still significantly compromised. At present, the patient is reporting significant pain at the surgical site as he is status post right hemicolectomy with exploratory laparoscopy done by Dr. Padlila for his new obstructing cecal mass/colon cancer with the patient having a MUD ANALYSIS WELL LOGGING OPERATOR narcotic pump, for which he was instructed to press the button for analgesic release, for which he needs encouragement to do so. We also asked for a spirometer as he is reporting that he has significant pain on deep inspiration. The patient is, otherwise, in no acute distress with his IV running and tolerating full liquid diet just advanced. OBJECTIVE/PHYSICAL EXAMINATION: VITAL SIGNS: Temperature 98, pulse 76, respirations 20, blood pressure 128/86, pulse ox 98%. HEENT: Unremarkable. NECK: Supple. HEART: Regular rate. LUNGS: Clear. ABDOMEN: Soft, nontender with dressing dry and intact. EXTREMITIES: No edema. SKIN: Warm and dry. NEUROLOGIC: Awake and alert. LABORATORY DATA: The patient's labs were done. White blood cell count of 7.8; hemoglobin of 7.6, down from 9.3 yesterday, which may be heme constricted and non-heme delusional as he received 1 unit of packed cells yesterday; hematocrit 26.2, platelet count of 218,000 with a metabolic panel showing a potassium of 3.5, which will be replenished with an, otherwise, normal metabolic panel. Total protein of 4.6, albumin of 2.3. ASSESSMENT: For this patient is that of postoperative day 2, right hemicolectomy, exploratory laparoscopy for adenocarcinoma with obstructing cecal mass, symptomatic anemia, gastrointestinal bleed, schizoaffective disorder, gastroesophageal reflux disease, postoperative pain, anxiety. PLAN: For this patient after conversation with Dr. Spaulding is to continue his present medical regimen as per Dr. Padilla, surgeon. The patient was convinced of the need for continuation of recommendations as per Dr. Spaulding for improving his anemic indices by transfusion, which he agrees to. We will continue GI prophylaxis with monitoring clinically and with labs. We will also offer an incentive spirometer and give potassium orally with advancement of diet as per surgeon's recommendations. This is a complex patient with a comprehensive medically necessary and appropriate visit carried out in excess of 50 minutes with the patient's questions answered to his satisfaction along with nursing staff informed of the plan for this patient. Christo Franco MD
[2018-08-30] MEDS: HYDROmorphone 0.5 mg/0.5 ml ISec IVP PRN ×2 (02:01→08:35)
[2018-08-30] MEDS: Sucralfate 1 gm/10 ml Oral Susp UD PO SCH ×2 (06:18→17:27)
[2018-08-30] MEDS: Pantoprazole 40 mg EC Tab PO SCH (08:28)
[2018-08-30 08:36] LABS: GRAN # 8.52 (1.4-6.5); LYMPH # 1.3 (1.2-3.4); LYMPH % 13.1 % (22.0-35.0); MEAN CELL VOLUME 81.3 fl (80.0-105.0); MEAN CORPUSCULAR HEMOGLOBIN 24.7 pg (25.0-35.0); MEAN CORPUSCULAR HGB CONC 30.4 g/dl (31.0-37.0); MONO # 0.4 (0.1-0.6); MONO % 3.9 % (1.0-6.0); PLATELET COUNT 271 10^3/uL (120.0-450.0); RBC 4.81 10^6/uL (3.5-6.1); RED CELL DISTRIBUTION WIDTH 20.2 % (11.5-14.5); WHITE BLOOD COUNT 10.3 10^3/uL (4.5-11.0)
[2018-08-30 08:43] LABS: HEMOGLOBIN 11.9 g/dL (14.0-18.0)
[2018-08-30 09:23] LABS: ALB/GLOB RATIO 1.1 (1.1-1.8); ALBUMIN 2.9 g/dL (3.0-4.8); ALT/SGPT 26 U/L (7-56); AST/SGOT 25 U/L (17-59); BLOOD UREA NITROGEN 7 mg/dL (7-21); CALCIUM 9.1 mg/dL (8.4-10.5); GFR NON-AFRICAN AMERICAN > 60
--- NOTE | 2018-08-30 11:50 | CP.PCM.PN ---
Subjective - Date & Time of Evaluation Date of Evaluation: 08/30/18 Time of Evaluation: 11:48 - Subjective Subjective: Surgery: Dr. Padilla Pt seen and examined. Resting comfortably in bed. S/P 2U PRBCs last night. Tolerating FLD. No N/V. No flatus or BM yet. Objective - Vital Signs/Intake and Output Vital Signs (last 24 hours): Temp Pulse Resp BP Pulse Ox 97.5 F L 63 18 122/80 97 08/30/18 06:17 08/30/18 06:17 08/30/18 06:17 08/30/18 06:17 08/30/18 06:17 Intake and Output: 08/30/18 08/30/18 06:59 18:59 Intake Total 280 Balance 280 - Medications Medications: Current Medications Acetaminophen (Tylenol 325mg Tab) 650 mg PO Q6H PRN PRN Reason: Fever >100.4 F Last Admin: 08/26/18 20:18 Dose: 650 mg Citalopram Hydrobromide (Celexa) 10 mg PO DAILY [facility] Last Admin: 08/30/18 10:08 Dose: 10 mg Clonazepam (Klonopin) 0.5 mg PO TID [facility]; Protocol Last Admin: 08/30/18 10:09 Dose: 0.5 mg Folic Acid (Folic Acid) 1 mg PO MWF [facility] Last Admin: 08/28/18 10:02 Dose: 1 mg Sodium Chloride (Sodium Chloride 0.9%) 1,000 mls @ 50 mls/hr IV .Q20H [facility] Last Admin: 08/29/18 15:51 Dose: 50 mls/hr Ondansetron HCl (Zofran Inj) 4 mg IVP Q4H PRN PRN Reason: Nausea/Vomiting Oxycodone HCl (Oxycodone Immediate Release Tab) 5 mg PO Q6H PRN PRN Reason: Pain, severe (8-10) Pantoprazole Sodium (Protonix Ec Tab) 40 mg PO ACB [facility] Last Admin: 08/30/18 08:28 Dose: 40 mg Saliva Substitute (Saliva Substitute) 0 ml PO Q2H PRN PRN Reason: Dry mouth Sucralfate (Carafate Oral Susp) 1 gm PO 0600,1600 [facility] Last Admin: 08/30/18 06:18 Dose: Not Given - Labs Labs: 08/30/18 08:27 08/30/18 08:27 PT 16.2 SECONDS (9.4-12.5) H 08/25/18 07:30 INR 1.40 08/25/18 07:30 APTT 27.5 Seconds (25.1-36.5) 08/25/18 07:30 - Constitutional Appears: Non-toxic, No Acute Distress - Head Exam Head Exam: ATRAUMATIC, NORMOCEPHALIC - Eye Exam Eye Exam: EOMI - ENT Exam ENT Exam: Mucous Membranes Moist - Neck Exam Neck Exam: Full ROM - Respiratory Exam Respiratory Exam: NORMAL BREATHING PATTERN. absent: Accessory Muscle Use, Respiratory Distress - GI/Abdominal Exam GI & Abdominal Exam: Soft, Tenderness (rock-incisional ). absent: Distended, Firm, Guarding, Rigid Additional comments: dressing in place, C/D/I - Extremities Exam Extremities Exam: absent: Calf Tenderness, Pedal Edema - Neurological Exam Neurological Exam: Alert, Awake, Oriented x3 Assessment and Plan - Assessment and Plan (Free Text) Assessment: 58M w. colon CA s/p R hemicolectomy, POD#3 -c/w FLD -Monitor bowel fxn -Advance diet when passing flatus -encourage ambulation -d/w attending [employer] PGY4
[2018-08-30] MEDS: oxyCODONE 5 mg Immediate Release Tab PO PRN ×2 (13:49→18:20)
--- NOTE | 2018-08-30 19:53 | PN ---
DATE: 08/30/2018 This is [facility]'s hospital visit on the medical floor. For Dr. Spaulding. 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 Clifford Padilla with right hemicolectomy, postop day 3 with severe anemia, not having been corrected with the patient now describing of incisional discomfort as his only complaint. With diet, he has now been adjusted as per surgical asst for Dr. Padilla, which will advance once he is passing flatus with the patient reporting that it was already advanced. We will clarify this. Otherwise, the patient is tolerating his liquid diet at present and narcotic analgesics do help his pain. PHYSICAL EXAMINATION: VITAL SIGNS: Temperature 97.5, pulse 62, respirations 18, blood pressure 122/80, and pulse ox 97%. HEENT: Unremarkable. Tongue is moist. NECK: Supple. HEART: Regular rate. LUNGS: Clear. ABDOMEN: Soft with minimal tenderness to gentle palpation with dressing dry and intact. EXTREMITIES: No edema. SKIN: Warm and dry. NEUROLOGIC: Awake and alert. LABORATORY DATA: The patient's labs were done. White blood cell count of 10.3, hemoglobin of 11.9, with hematocrit of 39.1, and platelet count of 271,000. It should be noted that the patient received 2 units of packed red blood cells for hemoglobin of 7.6 yesterday with a result of today 11.9 with a lab errors suspected as the patient was on IV fluid which has since been discontinued with heme constriction and heme delusion, possibly responsible. We were again ask for lab repeat in the morning. Metabolic panel showing alkaline phosphatase of 160, total protein of 5.6, otherwise normal metabolic panel. Should be noted, the patient's hepatitis A, B, and C tests were all negative. ASSESSMENT: For this patient is that of adenocarcinoma of the colon mass postop day 3, right hemicolectomy, severe symptomatic anemia of gastrointestinal bleed, now corrected schizoaffective disorder, gastroesophageal reflux disease, postop pain, and anxiety. PLAN: After conversation with Dr. Spaulding is to continue his present medical regimen. We will advance the diet as per surgical recommendations with his intravenous fluids being discontinued for now, the patient is ng monitored clinically with labs. The prognosis for this patient is guarded. This is a complex patient with a comprehensive medically necessary and appropriate visit carried out in excess of 40 minutes with the patient's questions answered to his satisfaction discussed with the nursing staff. Christo Franco MD
[2018-08-31] MEDS: oxyCODONE 5 mg Immediate Release Tab PO PRN ×4 (02:19→23:53)
[2018-08-31] MEDS: Sucralfate 1 gm/10 ml Oral Susp UD PO SCH ×2 (05:47→15:55)
[2018-08-31 07:57] LABS: BASO # 0.01 K/mm3 (0.0-2.0); BASO % 0.1 % (0.0-3.0); EOS # 0.1 (0.0-0.7); EOS % 0.9 % (1.5-5.0); GRAN # 7.77 (1.4-6.5); GRAN % 79.3 % (50.0-68.0); HEMOGLOBIN 10.7 g/dL (14.0-18.0); LYMPH # 1.2 (1.2-3.4); LYMPH % 12.4 % (22.0-35.0); MEAN CELL VOLUME 80.4 fl (80.0-105.0); MEAN CORPUSCULAR HEMOGLOBIN 24.1 pg (25.0-35.0); MONO # 0.7 (0.1-0.6); MONO % 7.3 % (1.0-6.0); PLATELET COUNT 223 10^3/uL (120.0-450.0); RBC 4.44 10^6/uL (3.5-6.1); WHITE BLOOD COUNT 9.8 10^3/uL (4.5-11.0)
[2018-08-31 08:15] LABS: ALB/GLOB RATIO 1.1 (1.1-1.8); ALBUMIN 2.7 g/dL (3.0-4.8); ALT/SGPT 33 U/L (7-56); AST/SGOT 31 U/L (17-59); BLOOD UREA NITROGEN 7 mg/dL (7-21); CALCIUM 8.6 mg/dL (8.4-10.5); GFR NON-AFRICAN AMERICAN > 60
--- NOTE | 2018-08-31 08:32 | CP.PCM.PN ---
Subjective - Date & Time of Evaluation Date of Evaluation: 08/31/18 Time of Evaluation: 06:45 - Subjective Subjective: Surgery progress note, Dr. Padilla Patient seen and examined at bedside. He is ambulating in the room. Passed flatus and had BM last night. Tolerating FLD, pain managed with meds. Patient reports no complaints. Objective - Vital Signs/Intake and Output Vital Signs (last 24 hours): Temp Pulse Resp BP Pulse Ox 98.2 F 96 H 18 127/86 95 08/31/18 07:00 08/31/18 07:00 08/31/18 07:00 08/31/18 07:00 08/31/18 07:00 Intake and Output: 08/31/18 08/31/18 06:59 18:59 Intake Total 600 Balance 600 - Medications Medications: Current Medications Acetaminophen (Tylenol 325mg Tab) 650 mg PO Q6H PRN PRN Reason: Fever >100.4 F Last Admin: 08/26/18 20:18 Dose: 650 mg Citalopram Hydrobromide (Celexa) 10 mg PO DAILY [facility] Last Admin: 08/30/18 10:08 Dose: 10 mg Clonazepam (Klonopin) 0.5 mg PO TID [facility]; Protocol Last Admin: 08/30/18 17:27 Dose: 0.5 mg Folic Acid (Folic Acid) 1 mg PO MWF [facility] Last Admin: 08/28/18 10:02 Dose: 1 mg Ondansetron HCl (Zofran Inj) 4 mg IVP Q4H PRN PRN Reason: Nausea/Vomiting Oxycodone HCl (Oxycodone Immediate Release Tab) 5 mg PO Q6H PRN PRN Reason: Pain, severe (8-10) Last Admin: 08/31/18 02:19 Dose: 5 mg Pantoprazole Sodium (Protonix Ec Tab) 40 mg PO ACB [facility] Last Admin: 08/30/18 08:28 Dose: 40 mg Saliva Substitute (Saliva Substitute) 0 ml PO Q2H PRN PRN Reason: Dry mouth Sucralfate (Carafate Oral Susp) 1 gm PO 0600,1600 [facility] Last Admin: 08/31/18 05:47 Dose: 1 gm - Labs Labs: 08/31/18 07:45 08/31/18 07:45 PT 16.2 SECONDS (9.4-12.5) H 08/25/18 07:30 INR 1.40 08/25/18 07:30 APTT 27.5 Seconds (25.1-36.5) 08/25/18 07:30 - Constitutional Appears: Well, No Acute Distress - Head Exam Head Exam: ATRAUMATIC, NORMAL INSPECTION, NORMOCEPHALIC - Eye Exam Eye Exam: EOMI, Normal appearance, PERRL Pupil Exam: NORMAL ACCOMODATION, PERRL - ENT Exam ENT Exam: Mucous Membranes Moist, Normal Exam - Neck Exam Neck Exam: Full ROM, Normal Inspection. absent: Lymphadenopathy - Respiratory Exam Respiratory Exam: Clear to Ausculation Bilateral, NORMAL BREATHING PATTERN. absent: Rales, Wheezes - Cardiovascular Exam Cardiovascular Exam: REGULAR RHYTHM, +S1, +S2. absent: Gallop, Rubs - GI/Abdominal Exam GI & Abdominal Exam: Soft, Normal Bowel Sounds. absent: Tenderness Additional comments: clean wound. no erythema/discharge. dressing removed - Extremities Exam Extremities Exam: Full ROM, Normal Capillary Refill, Normal Inspection. absent: Joint Swelling, Pedal Edema - Neurological Exam Neurological Exam: Alert, Awake, Oriented x3 - Psychiatric Exam Psychiatric exam: Normal Affect, Normal Mood - Skin Skin Exam: Dry, Intact, Normal Color, Warm Assessment and Plan - Assessment and Plan (Free Text) Assessment: 58 y/o male with colon CA s/p R hemicolectomy, POD#4 Plan: -patient had BM, passed flatus -advance diet to regular -plan to d/c home with outpatient f/u -further recs per Dr. Randy Lai, DO
[2018-08-31] MEDS: Pantoprazole 40 mg EC Tab PO SCH (09:11)
[2018-09-01] MEDS: Sucralfate 1 gm/10 ml Oral Susp UD PO SCH (06:02)
--- NOTE | 2018-09-01 07:30 | CP.PCM.PN ---
Subjective - Date & Time of Evaluation Date of Evaluation: 09/01/18 Time of Evaluation: 07:26 - Subjective Subjective: Surgery Progress note- Dr. Padilla Patient seen and examined at bedside. No new complaints at this time. + Flatus, no BM. Dressing taken down yesterday, Incisional pain improving. + OOB and ambulating. Denies n/v/f/c/cp/sob Objective - Vital Signs/Intake and Output Vital Signs (last 24 hours): Temp Pulse Resp BP Pulse Ox 97.9 F 92 H 18 136/91 H 98 08/31/18 22:51 08/31/18 22:51 08/31/18 22:51 08/31/18 22:51 08/31/18 22:51 - Medications Medications: Current Medications Acetaminophen (Tylenol 325mg Tab) 650 mg PO Q6H PRN PRN Reason: Fever >100.4 F Last Admin: 08/26/18 20:18 Dose: 650 mg Citalopram Hydrobromide (Celexa) 10 mg PO DAILY [facility] Last Admin: 08/31/18 10:37 Dose: 10 mg Clonazepam (Klonopin) 0.5 mg PO TID [facility]; Protocol Last Admin: 08/31/18 21:16 Dose: 0.5 mg Folic Acid (Folic Acid) 1 mg PO MWF [facility] Last Admin: 08/31/18 10:38 Dose: 1 mg Ondansetron HCl (Zofran Inj) 4 mg IVP Q4H PRN PRN Reason: Nausea/Vomiting Oxycodone HCl (Oxycodone Immediate Release Tab) 5 mg PO Q6H PRN PRN Reason: Pain, severe (8-10) Last Admin: 08/31/18 23:53 Dose: 5 mg Pantoprazole Sodium (Protonix Ec Tab) 40 mg PO ACB [facility] Last Admin: 08/31/18 09:11 Dose: 40 mg Saliva Substitute (Saliva Substitute) 0 ml PO Q2H PRN PRN Reason: Dry mouth Sucralfate (Carafate Oral Susp) 1 gm PO 0600,1600 [facility] Last Admin: 09/01/18 06:02 Dose: Not Given - Labs Labs: 08/31/18 07:45 08/31/18 07:45 PT 16.2 SECONDS (9.4-12.5) H 08/25/18 07:30 INR 1.40 08/25/18 07:30 APTT 27.5 Seconds (25.1-36.5) 08/25/18 07:30 - Constitutional Appears: Non-toxic, No Acute Distress - Head Exam Head Exam: ATRAUMATIC - Eye Exam Eye Exam: EOMI. absent: Scleral icterus - ENT Exam ENT Exam: Mucous Membranes Moist - Respiratory Exam Respiratory Exam: NORMAL BREATHING PATTERN. absent: Accessory Muscle Use, Respiratory Distress - Cardiovascular Exam Cardiovascular Exam: REGULAR RHYTHM. absent: Bradycardia, Tachycardia - GI/Abdominal Exam GI & Abdominal Exam: Soft, Tenderness (tenderness improving midline- rock- incisional). absent: Distended, Firm, Guarding, Rigid - Neurological Exam Neurological Exam: Alert, Awake, Oriented x3 - Psychiatric Exam Psychiatric exam: Normal Affect - Skin Skin Exam: Intact, Warm Assessment and Plan - Assessment and Plan (Free Text) Assessment: 58M s/p Right hemicolectomy w/ primary anastamosis; no passing flatus and tolerating diet Plan: - cleared for regular diet - analgesia PO, PRN - encourage OOB and ambulation - cleared for discharge from surgical stand point - d/w Dr. Padilla surgical attending PGY2
[2018-09-01] MEDS: oxyCODONE 5 mg Immediate Release Tab PO PRN (09:34)
[2018-09-01] MEDS: Pantoprazole 40 mg EC Tab PO SCH (09:34)
[2018-09-01 15:00] VITALS: RESP 20
[2018-09-01 15:16] VITALS: BP 139/93; PULSE 94; TEMP 98.6; O2SAT 99
--- NOTE | 2018-09-01 16:00 | CP.PCM.DIS ---
Provider - Provider Date of Admission: 08/24/18 16:44 Attending physician: Christo Frnaco MD Primary care physician: PMD: Dr Spaulding Consults: 08/24/18 16:46 Consult [Physician Consult] Stat Comment: Consulting Provider: Clifford Padilla Consulting Physician: Clifford Padilla Reason for Consult: Colon CA Time Spent in preparation of Discharge (in minutes): 49 Diagnosis - Discharge Diagnosis (1) S/P right hemicolectomy Status: Acute Priority: High (2) Colon cancer Status: Chronic Priority: High Hospital Course - Lab Results Lab Results: Most Recent Lab Values WBC 9.8 10^3/uL (4.5-11.0) 08/31/18 07:45 RBC 4.44 10^6/uL (3.5-6.1) 08/31/18 07:45 Hgb 10.7 g/dL (14.0-18.0) L 08/31/18 07:45 Hct 35.7 % (42.0-52.0) L 08/31/18 07:45 MCV 80.4 fl (80.0-105.0) 08/31/18 07:45 MCH 24.1 pg (25.0-35.0) L 08/31/18 07:45 MCHC 30.0 g/dl (31.0-37.0) L 08/31/18 07:45 RDW 21.0 % (11.5-14.5) H 08/31/18 07:45 Plt Count 223 10^3/uL (120.0-450.0) 08/31/18 07:45 Gran % 79.3 % (50.0-68.0) H 08/31/18 07:45 Lymph % (Auto) 12.4 % (22.0-35.0) L 08/31/18 07:45 [place] % (Auto) 7.3 % (1.0-6.0) H 08/31/18 07:45 Eos % (Auto) 0.9 % (1.5-5.0) L 08/31/18 07:45 Baso % (Auto) 0.1 % (0.0-3.0) 08/31/18 07:45 Gran # 7.77 (1.4-6.5) H 08/31/18 07:45 Lymph # (Auto) 1.2 (1.2-3.4) 08/31/18 07:45 [place] # (Auto) 0.7 (0.1-0.6) H 08/31/18 07:45 Eos # (Auto) 0.1 (0.0-0.7) 08/31/18 07:45 Baso # (Auto) 0.01 K/mm3 (0.0-2.0) 08/31/18 07:45 PT 16.2 SECONDS (9.4-12.5) H 08/25/18 07:30 INR 1.40 08/25/18 07:30 APTT 27.5 Seconds (25.1-36.5) 08/25/18 07:30 Sodium 137 mmol/L (132-148) 08/31/18 07:45 Potassium 3.8 mmol/L (3.6-5.0) 08/31/18 07:45 Chloride 107 mmol/L (98-107) 08/31/18 07:45 Carbon Dioxide 22 mmol/L (21-33) 08/31/18 07:45 Anion Gap 12 (10-20) 08/31/18 07:45 BUN 7 mg/dL (7-21) 08/31/18 07:45 Creatinine 0.8 mg/dl (0.8-1.5) 08/31/18 07:45 Est GFR ( Amer) > 60 08/31/18 07:45 Est GFR (Non-Af Amer) > 60 08/31/18 07:45 Random Glucose 94 mg/dL (70-110) 08/31/18 07:45 Calcium 8.6 mg/dL (8.4-10.5) 08/31/18 07:45 Iron 10 ug/dL (45-180) L 08/25/18 13:00 TIBC 192 ug/dL (261-462) L 08/25/18 13:00 % Saturation 5 % (20-55) L 08/25/18 13:00 Ferritin 111.0 ng/mL 08/25/18 13:00 Total Bilirubin 0.5 mg/dL (0.2-1.3) 08/31/18 07:45 AST 31 U/L (17-59) 08/31/18 07:45 ALT 33 U/L (7-56) 08/31/18 07:45 Alkaline Phosphatase 167 U/L (38-126) H 08/31/18 07:45 Total Protein 5.3 g/dL (5.8-8.3) L 08/31/18 07:45 Albumin 2.7 g/dL (3.0-4.8) L 08/31/18 07:45 Globulin 2.6 gm/dL 08/31/18 07:45 Albumin/Globulin Ratio 1.1 (1.1-1.8) 08/31/18 07:45 Carcinoembryonic Ag 518.0 ng/mL (0.0-3.0) H 08/31/18 07:45 CA 19-9 Antigen 1320 U/mL (0-37) H 08/31/18 07:45 Blood Type O POSITIVE 08/27/18 06:45 Antibody Screen Negative 08/27/18 06:45 Crossmatch See Detail 08/27/18 06:45 BBK History Checked Patient has bt 08/27/18 06:45 - Hospital Course Hospital Course: PGY-2 heme/onc H&P note for Dr Luis Spaulding Mr Blackman is a 57 yo male with a PMHx of ITP, FELIX, iron deficiency anemia, affective disorder who was recently found to have a cecal mass s/p colonoscopy and biopsy now known to be colonic adenocarcinoma with metastatic disease to the liver and lung presents to the ED from Dr Spaulding's office for clearance for surgery. 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 PMD: Dr Wai Spaulding Family History- Father- bladder cancer, Brother-Liver cancer Social History- quit tobacco as a teenager, denies alcohol or illicit drug use Surgical History- multiple scalp cyst removal HOSPITAL COURSE: Mr Blackman has a laparoscopic hand assisted right hemicolectomy on 08/27/[address]illa without complications. Pathology results are pending. His recovery post surgery went well. He was given flagyl and neomycin for empiric coverage and dilaudid for pain control which was later switched to oxycodone. He was given 1unit pRBCs during the procedure in the OR as his hemoglobin was in the ~7s. Patient has follow-up appointments scheduled with Dr Spaulding and Dr Padilla for next week (see discharge instructions). For more specifics on management please see latest progress note copied below: Mr Blackman is a 57 yo male with a PMHx of ITP, FELIX, iron deficiency anemia, affective disorder who was recently found to have a cecal mass s/p colonoscopy and biopsy now known to be colonic adenocarcinoma with metastatic disease to the liver and lung presents to the ED from Dr Spaulding's office for clearance for surgery: Adenocarcinoma of the Colon with Mets to Liver and Lung -Diagnosed 07/2018 -consult surgery, Dr Padilla * s/p Laparoscopic, hand assisted R hemicolectomy 08/27/18 w/ no complications * f/u pathology results -on flagyl and neomycin for empiric coverage -dilaudid for pain control Anemia -Hgb on admission: 8.2 -iron studies -> iron 10, tibc 192, %sat 5, ferritin 111 -transfused 1u pRBC during operation -On previous admission in early Jul he received 4 units pRBCs -He comes to transfusion clinic for iron transfusions -continue home med ferrous sulfate 325mg po bid -continue home med folic acid 1mg po mwf Affective Disorder -continue home med klonopin 0.5mg po tid -continue home med celexa 10mg po qd GERD -continue home med sucralfate 1g po bid -continue home med omeprazole 20mg op qd PPX -SCDs -holding AC due to recent surgery -soft low fiber diet as recommended by GI on previous admission Discharge Exam - Head Exam Head Exam: ATRAUMATIC - Additional Findings Additional findings: - Constitutional Appears: Non-toxic, No Acute Distress - Head Exam Head Exam: ATRAUMATIC - Eye Exam Eye Exam: EOMI. absent: Scleral icterus - ENT Exam ENT Exam: Mucous Membranes Moist - Respiratory Exam Respiratory Exam: NORMAL BREATHING PATTERN. absent: Accessory Muscle Use, Respiratory Distress - Cardiovascular Exam Cardiovascular Exam: REGULAR RHYTHM. absent: Bradycardia, Tachycardia - GI/Abdominal Exam GI & Abdominal Exam: Soft, Tenderness (tenderness improving midline- rock- incisional). absent: Distended, Firm, Guarding, Rigid - Neurological Exam Neurological Exam: Alert, Awake, Oriented x3 - Psychiatric Exam Psychiatric exam: Normal Affect - Skin Skin Exam: Intact, Warm Discharge Plan - Discharge Medications Prescriptions: oxyCODONE [oxyCODONE Immediate Release Tab] 5 mg PO Q6H PRN #15 tab PRN Reason: Pain, Moderate (4-7) - Follow Up Plan Condition: STABLE Disposition: HOME/ ROUTINE Instructions: Colectomy, Partial and Total, (DC), Pneumococcal Conjugate Vaccine (10-Valent), Flu Vaccine Additional Instructions: Please follow-up with Oncologist/PMD Dr Spaulding. An appt has been made for you for FridaySep 07 at 12:30pm. Please follow-up with Surgeon Dr Padilla. An appt has been made for you for FridaySep 08 at 2:15pm. Please resume all your normal home medications, this includes: klonopin 0.5mg 3x/day, celexa 10mg 1x/day, sucralfate 1g 2x/day, vitamin d [id number] once a week, folic acid 1mg on friday/friday/friday, omeprazole 20mg 1x/day You will be given a script for the following medication to control your pain, please take as instructed: 1. Oxycodone 5mg only as needed every 6 hours for severe pain. This medication can cause constipation - please take over the counter stool softener as needed. You were taking iron tablets before (ferrous sulfate) please stop these pills. Instead please buy over the counter flinstones vitamin WITH IRON. If symptoms return, please go to your nearest emergency department. Referrals: Mk Spaulding MD [Staff Provider] - Christo Franco MD [Staff Provider] - Clifford Padilla MD [Staff Provider] -
== END 2018-09-01 17:07 | disposition home or self-care (01) | DRG 330 ==
LOC: ED 15:07 → ERH 16:44 → 5RSO 22:27
PROVIDERS: ADMIT Family Medicine; ATTEND Family Medicine
PROC: 0DTF0ZZ Resection of Right Large Intestine, Open Approach (ICD-10-PCS; principal; 2018-08-27 11:00)
PROC: 30233N1 Transfusion of Nonautologous Red Blood Cells into Peripheral Vein, Percutaneous Approach (ICD-10-PCS; 2018-08-27 11:00)
DX: C18.2 Malignant neoplasm of ascending colon (principal); C78.00 Secondary malignant neoplasm of unspecified lung; C78.7 Secondary malignant neoplasm of liver and intrahepatic bile duct; D69.3 Immune thrombocytopenic purpura; D50.0 Iron deficiency anemia secondary to blood loss (chronic); K21.9 Gastro-esophageal reflux disease without esophagitis; F25.9 Schizoaffective disorder, unspecified; F39 Unspecified mood [affective] disorder; F41.9 Anxiety disorder, unspecified; Z53.31 Laparoscopic surgical procedure converted to open procedure; Z87.891 Personal history of nicotine dependence; Z80.0 Family history of malignant neoplasm of digestive organs; Z80.52 Family history of malignant neoplasm of bladder

== ENCOUNTER 2018-08-24 15:57 | Outpatient (CLI) | payer MEDICARE | END 2018-08-24 15:58 | disposition home or self-care (01) | LOC: LAB 15:57 ==

== ENCOUNTER 2018-09-28 17:46 | Outpatient (CLI) | payer MEDICARE | END 2018-09-28 17:47 | disposition home or self-care (01) | LOC: OPLAB 17:46 ==

== ENCOUNTER 2018-11-04 07:37 | Day surgery (SDC) | payer MEDICARE ==
[2018-11-03 08:34] VITALS: BMI 22.0
[2018-11-04 08:16] LABS: BASO # 0.02 K/mm3 (0.0-2.0); BASO % 0.2 % (0.0-3.0); EOS % 0.5 % (1.5-5.0); HEMOGLOBIN 11.8 g/dL (14.0-18.0); LYMPH # 2.2 (1.2-3.4); LYMPH % 26.2 % (22.0-35.0); MEAN CELL VOLUME 82.3 fl (80.0-105.0); MEAN CORPUSCULAR HEMOGLOBIN 24.8 pg (25.0-35.0); MEAN CORPUSCULAR HGB CONC 30.2 g/dl (31.0-37.0); MONO # 0.6 (0.1-0.6); MONO % 7.2 % (1.0-6.0); PLATELET COUNT 165 10^3/uL (120.0-450.0); RBC 4.75 10^6/uL (3.5-6.1); RED CELL DISTRIBUTION WIDTH 21.1 % (11.5-14.5); WHITE BLOOD COUNT 8.3 10^3/uL (4.5-11.0)
[2018-11-04 08:28] LABS: INR 1.27; PARTIAL THROMBOPLASTIN TIME 34.1 Seconds (26.9-38.3); PROTHROMBIN TIME 14.4 SECONDS (9.4-12.5)
[2018-11-04 08:29] LABS: BLOOD UREA NITROGEN 13 mg/dL (7-21); CALCIUM 9.5 mg/dL (8.4-10.5); GFR NON-AFRICAN AMERICAN > 60
[2018-11-04] MEDS ORDERED: Lidocaine PF 2% (5 ml) Inj (For Cardiac Arrhy) ONE ×2 (10:37→10:58)
[2018-11-04] MEDS ORDERED: Midazolam 2 MG/2 ML VIAL ONE ×2 (11:01→11:05)
[2018-11-04] MEDS ORDERED: Oxycodone/Acetaminophen 5/325 mg Tab PO PRN (11:44)
[2018-11-04] MEDS ORDERED: Sodium Chloride 0.45% 1,000 ML IV SCH (11:45)
[2018-11-04 11:51] VITALS: RESP 18
[2018-11-04 11:58] VITALS: O2SAT 98
[2018-11-04 12:17] VITALS: TEMP 97.5
[2018-11-04 13:06] VITALS: BP 124/80; PULSE 70
--- NOTE | 2018-11-04 20:15 | VASCULAR ---
PROCEDURE: Ultrasound and fluoroscopic right internal jugular venous access port. CLINICAL HISTORY: Metastatic colon carcinoma.Venous port for chemotherapy. PHYSICIAN(S): Ari Wade M.D. TECHNIQUE: The relative risks and indications of the procedure were explained to the patient and consent obtained. The patient was placed supine on the arteriogram table and the right neck and chest prepped and draped in the usual sterile fashion. Conscious sedation monitoring was provided throughout the procedure by a nurse. Antibiotics were given prior to the procedure. Under direct ultrasound guidance, the right internal jugular vein was punctured with a micro-puncture set. A 0.035 angled Glidewire was advanced into the IVC. A 4 cm incision was made below the right clavicle and the pocket blunted dissected. A 6 Italian single-lumen catheter, 26 cm long, was advanced to the SVC/RA junction. The catheter was trimmed and attached to the port. The port aspirates and injects easily. The port was placed in the pocket and closed in 2 layers. The patient tolerated the procedure well. IMPRESSION: Ultrasound and fluoroscopically placed right internal jugular venous access port.
== END 2018-11-04 13:00 | disposition home or self-care (01) ==
LOC: SDS 07:37
PROVIDERS: ATTEND Radiology Vascular & Interventional Radiology
DX: C18.9 Malignant neoplasm of colon, unspecified (principal); C78.7 Secondary malignant neoplasm of liver and intrahepatic bile duct; Z87.891 Personal history of nicotine dependence
CPT/HCPCS: 36415; 36561; 76937; 77001; 80048; 85025; 85610; 85730; 99152; C1769; C1788; J0690; J1644; J2250; J2405; J3010; J7030

== ENCOUNTER 2018-12-23 13:06 | Outpatient (CLI) | payer MEDICARE | END 2018-12-23 13:07 | disposition home or self-care (01) | LOC: OPLAB 13:06 ==